=== PATIENT | male | born 1970 | race Caucasian/White ===

== ENCOUNTER → 2017-12-10 10:10 | Outpatient (CLI) | payer BC, SELFPAY ==
[2017-12-10 11:37] LABS: Alanine Aminotransferase 37 U/L (12-78); Albumin Level 4.4 gm/dL (3.4-5.0); Albumin/Globulin Ratio 1.4 (1.1-1.8); Alkaline Phosphatase 60 U/L (46-116); Anion Gap 12.3 mEq/L (5-15); Aspartate Amino Transferase 31 U/L (15-37); Bilirubin,Total 0.6 mg/dL (0.2-1.0); Blood Urea Nitrogen 19 mg/dL (7-18); Calcium 8.8 mg/dL (8.5-10.1); Carbon Dioxide 28 mmol/L (21.0-32.0); Chloride 101 mmol/L (98-107); Chol/HDL Ratio 3.1 (1-3.5); Cholesterol 174 mg/dL (140-200); Creatinine,Serum 0.96 mg/dL (0.70-1.30); Estimated Glomerular Filt Rate 83 ml/min (>60); GFR (African American) 101 ML/MIN (>60); Globulin 3.1 gm/dl (1.3-3.2); Glucose 122 mg/dL (74-106); HDL Cholesterol 56 mg/dL (27-67); LDL Cholesterol 87 mg/dL (0-130); Potassium 4.3 mmoL/L (3.5-5.1); Prostate Specific Ag Screen 0.2 ng/mL (0.0-4.0); Sodium 137 mmol/L (136-145); Total Protein,Serum 7.5 gm/dL (6.4-8.2); Triglycerides 153 mg/dL (30-200); VLDL Cholesterol 31 mg/dL (0-40)
== END ==
PROVIDERS: PCP Family Medicine; Visit Provider Family Medicine
DX: I10 Essential (primary) hypertension (principal); E78.5 Hyperlipidemia, unspecified; N40.0 Benign prostatic hyperplasia without lower urinary tract symptoms
CPT/HCPCS: 36415; 80053; 80061; G0103

== ENCOUNTER → 2018-07-19 10:35 | Outpatient (CLI) | payer BC, SELFPAY ==
--- NOTE | 2018-07-19 10:41 | XR_ITS ---
EXAM: XR cervical spine 5V HISTORY: ITS.REASON: NECK PAIN ORDERING PHYSICIAN: Ban Love MD PATIENT AGE: 48 years COMPARISON: None FINDINGS: There is slight reversal of the cervical lordosis. This may be due to patient positioning or muscle spasm. Degenerative disc disease is present at C5-C6 and C6-C7 . The foramina are widely patent area is minimal head tilt to the right. Carotid artery calcifications are present. IMPRESSION: Reversal of cervical lordosis with mild head tilt which may be due to patient positioning or muscle spasm. Degenerative disc disease C5-C6 and C6-C7
== END ==
PROVIDERS: PCP Family Medicine; Visit Provider Family Medicine
DX: M54.2 Cervicalgia (principal)
CPT/HCPCS: 72050

== ENCOUNTER → 2018-07-28 15:07 | Outpatient (CLI) | payer BC, SELFPAY ==
--- NOTE | 2018-07-28 15:13 | CI_ITS ---
Cerebrovascular Exam IMPRESSIONS 1. The bilateral vertebral arteries are patent with normal antegrade flow. 2. Study suggests less than 20% stenosis involving the right internal carotid artery and the left internal carotid artery. Carotid duplex study. Complete study and Doppler flow study including spectral analysis, color and mendoza scale imaging. Height: Height: 182.9cm. Height: 72in. Weight: Weight: 117.9kg. Weight: 259.5lb. Body mass index: BMI: 35.3kg/m^2. Body surface area: BSA: 2.49m^2. Location: Vascular laboratory. Patient status: Outpatient. Tables: Arterial flow: + +--------+--------+ Location V sys V ed + +--------+--------+ Right CCA - proximal 159cm/s 18.7cm/s + +--------+--------+ Right CCA - distal 111cm/s 14.8cm/s + +--------+--------+ Right ECA 54cm/s -------- + +--------+--------+ Right ICA - proximal 53cm/s 14.7cm/s + +--------+--------+ Right ICA - mid 66.3cm/s 25.5cm/s + +--------+--------+ Right ICA - distal 84.9cm/s 32.5cm/s + +--------+--------+ Right vertebral 36.4cm/s -------- + +--------+--------+ Left CCA - proximal 166cm/s 22.6cm/s + +--------+--------+ Left CCA - distal 99.2cm/s 17.7cm/s + +--------+--------+ Left ECA 84.9cm/s -------- + +--------+--------+ Left ICA - proximal 54.1cm/s 20.1cm/s + +--------+--------+ Left ICA - mid 62.2cm/s 25.1cm/s + +--------+--------+ Left ICA - distal 69.1cm/s 23.9cm/s + +--------+--------+ Left vertebral 47.1cm/s -------- + +--------+--------+ Velocity ratios: + + + + + + Right, V sys Right, V ed Left, V sys Left, V ed + + + + + + Max ICA/dist CCA 0.76 2.2 0.7 1.42 + + + + + + (Report amended ) Electronically signed by: Julian Zuñiga [id number]
== END ==
PROVIDERS: Family Provider Family Medicine; PCP Family Medicine; Visit Provider Family Medicine
DX: I65.23 Occlusion and stenosis of bilateral carotid arteries (principal)
CPT/HCPCS: 93880

== ENCOUNTER → 2019-05-15 11:44 | Outpatient (CLI) | payer BC, SELFPAY ==
[2019-05-15 12:53] LABS: Anion Gap 14.1 mEq/L (5-15); Blood Urea Nitrogen 20 mg/dL (7-18); Calcium 8.4 mg/dL (8.5-10.1); Carbon Dioxide 27 mmol/L (21.0-32.0); Chloride 103 mmol/L (98-107); Chol/HDL Ratio 3.4 (1-3.5); Cholesterol 150 mg/dL (140-200); Creatinine,Serum 1.17 mg/dL (0.70-1.30); Estimated Glomerular Filt Rate 66 ml/min (>60); GFR (African American) 80 ML/MIN (>60); Glucose 104 mg/dL (74-106); HDL Cholesterol 44 mg/dL (27-67); LDL Cholesterol 65 mg/dL (0-130); Potassium 4.1 mmoL/L (3.5-5.1); Sodium 140 mmol/L (136-145); Thyroid Stimulating Hormone 1.39 uIU/ml (0.358-3.740); Triglycerides 204 mg/dL (30-200); VLDL Cholesterol 41 mg/dL (0-40)
[2019-05-15 13:21] LABS: Creatinine,Urine Random 153 mg/dL (20-320)
[2019-05-15 13:41] LABS: Prostate Specific Ag Screen 0.1 ng/mL (0.0-4.0)
[2019-05-15 14:50] LABS: Hemoglobin A1C 6.3 % (0.0-7.0)
[2019-05-17 07:47] LABS: Microalbumin, Urine 17.7 ug/mL (Not Estab.)
== END ==
PROVIDERS: Visit Provider Family Medicine
DX: I10 Essential (primary) hypertension (principal); E78.2 Mixed hyperlipidemia; R73.9 Hyperglycemia, unspecified; Z12.5 Encounter for screening for malignant neoplasm of prostate
CPT/HCPCS: 36415; 80048; 80061; 82043; 82570; 83036; 84443; G0103

== ENCOUNTER → 2020-04-16 16:24 | Outpatient (CLI) | payer BC, SELFPAY ==
--- NOTE | 2020-04-16 16:32 | XR_ITS ---
PROCEDURE: XR SHOULDER RT MIN 2V CLINICAL INDICATION: RIGHT SIDED THORACIC BACK PAIN COMPARISON: No exams were available for comparison FINDINGS: There is mild subacromial stenosis. There is minimal spurring along the inferior aspect of the a chromium with subacromial stenosis. The glenohumeral joint has an unremarkable appearance. There is some minimal hypertrophic change of the greater tubercle of the humerus. IMPRESSION: Spurring along the inferior surface of the a chromium with subacromial stenosis. This may result in impingement upon the supraspinatus tendon and may be better evaluated with MRI if clinically warranted. There is some minimal degenerative change of the humeral head Dictated by: Cesar Quezada MD 04/16/2020 16:50 Electronically signed by Cesar Quezada MD in [place] 04/16/2020 16:50
== END ==
PROVIDERS: PCP Family Medicine; Visit Provider Family Medicine
DX: M54.6 Pain in thoracic spine (principal); M54.2 Cervicalgia
CPT/HCPCS: 73030

== ENCOUNTER → 2020-04-24 08:38 | Outpatient (CLI) | payer BC, SELFPAY ==
--- NOTE | 2020-04-24 08:44 | MR_ITS ---
PROCEDURE: MR CERVICAL SPINE WO CON CLINICAL INDICATION: NECK PAIN Neck pain, right arm pain and numbness COMPARISON: No exams were available for comparison TECHNIQUE: Standard multiplanar multiecho sequences are performed without contrast. 3-D MIP and myelographic images are also rendered and reviewed FINDINGS: There is straightening of the cervical lordosis. This could be due to patient positioning or muscle spasm. The craniocervical junction has an unremarkable appearance. There is mild cervical curvature convex right. C2-C3: Mild left foraminal narrowing from facet hypertrophic change. C3-C4: Mild disc desiccation with minimal right foraminal narrowing from uncovertebral hypertrophy C4-C5: Mild bilateral foraminal narrowing from uncovertebral and facet hypertrophic change. There is a small broad-based right paracentral disc protrusion without impingement. C5-C6: Degenerative disc disease with a broad-based central right paracentral and foraminal disc protrusion most prominent in the foraminal region causing moderate right lateral recess and foraminal narrowing with abutting the cord on the anterior right aspect of the cord with central canal stenosis of 10 mm. C6-C7: Degenerative disc disease with bulging disc and an associated small broad-based right paracentral disc protrusion with resultant canal stenosis of 9 mm abutting the anterior aspect of the cord slightly on toward the right there is moderate bilateral lateral recess and foraminal narrowing C7-T1: Unremarkable. IMPRESSION: 1. Abnormal MRI of the cervical spine with multilevel cervical spondylosis with bulging disc and facet and uncovertebral hypertrophy with resultant lateral recess and foraminal narrowing. Please see above for detailed description at each level. 2. C4-C5: Mild bilateral foraminal narrowing from uncovertebral and facet hypertrophic change. There is a small broad-based right paracentral disc protrusion without impingement. 3. C5-C6: Degenerative disc disease with a broad-based central right paracentral and foraminal disc protrusion most prominent in the foraminal region causing moderate right lateral recess and foraminal narrowing with abutting the cord on the anterior right aspect of the cord with central canal stenosis of 10 mm. 4. C6-C7: Degenerative disc disease with bulging disc and an associated small broad-based right paracentral disc protrusion with resultant canal stenosis of 9 mm abutting the anterior aspect of the cord slightly on toward the right there is moderate bilateral lateral recess and foraminal narrowing Dictated by: Cesar Quezada MD 04/24/2020 14:41 Electronically signed by Cesar Quezada MD in [place] 04/24/2020 14:41
--- NOTE | 2020-04-24 08:44 | MR_ITS ---
PROCEDURE: MR SHOULDER RT WO CON CLINICAL INDICATION: RIGHT SHOULDER PAIN, SUBACROMIAL IMPINGEMENT Right shoulder pain with limited range of motion COMPARISON: XR SHOULDER RT MIN 2V from 04/16/2020 TECHNIQUE: Routine multiplanar multi echo sequences are performed without gadolinium enhancement. FINDINGS: There is complete tear of the supraspinatus tendon distally with mild retraction of the musculotendinous fibers. The infraspinatus tendon appears intact as does the subscapularis and teres minor tendons. There does appear to be a SLAP injury of the superior glenoid labrum with a tear from the 12 to 3 o'clock position. There is a small shoulder joint effusion. The bicipital tendon is in place. There is a small amount of fluid around the bicipital tendon sheath to the long head of the biceps and a small amount fluid in the subcoracoid region. Hypertrophic changes are present at the acromioclavicular joint. There is some mild cortical irregularity of the greater tubercle with a small amount fluid in the subdeltoid region. IMPRESSION: 1. Complete tear of the supraspinatus tendon with retraction of the musculotendinous fibers. 2. SLAP tear of the glenoid labrum 3. Fluid around the bicipital tendon sheath suggesting tendonitis with subcoracoid bursitis and mild osteoarthritic changes of the AC joint and degenerative changes of the humeral head Dictated by: Cesar Quezada MD 04/25/2020 09:34 Electronically signed by Cesar Quezada MD in [place] 04/25/2020 09:34
== END ==
PROVIDERS: PCP Family Medicine; Visit Provider Family Medicine
DX: M54.2 Cervicalgia (principal); M25.511 Pain in right shoulder; M75.41 Impingement syndrome of right shoulder
CPT/HCPCS: 72141; 73221; 76376

== ENCOUNTER 2020-05-29 16:30 | Outpatient (RCR) | payer BC, SELFPAY ==
--- NOTE | 2020-04-24 12:08 | HMH.PTOPEV ---
PT Outpatient Evaluation Rehab PT Outpatient Evaluation Start: 04/24/20 11:50 Freq: Status: Active Protocol: Document 04/24/20 11:50 MICHAEL (Rec: 04/24/20 12:08 MICHAEL [id number]) Electronically Signed By Rachid Solis, PT 04/24/20 11:50 Outpatient Therapy Subjective History Subjective History Patient is a 50 year old male presenting to outpatient PT with reports of R cervical/ shoulder pain with RUE radicular symptoms starting approx 1 month ago. No specific injury to report. Most recent imaging indicates possible C4/5 disc bulge. No radiology reports posted at this time. Relief noted with traction. Comorbidities include HTN, HLD and hx of umbilical hernia. Chief Complaint Pain,Paresthesia Symptom Type Numbness,Tingling,Shooting Symptoms Relieved By Heat,OTC Meds Symptoms Aggravated By Sitting,Standing,Bending/ Stooping,Physical Activity, Lifting Prior Functional Limitations None Current Functional Limitations Reaching,Lifting,Housework, Sleeping,Standing,Recreation Activity Symptom Description Constant but Variable Level of pain today (0-10) 5 Pain scale - at its best (0-10) 2 Pain scale - at its worst (0-10) 8 Cervical Eval Palpation Cervical Muscles R Upper Trapezius Cervical/Thoracic Palpation Findings Tenderness Posture Head/C-Spine Posture Sitting Position C-Spine Flattened Head/C-Spine Posture Standing Position C-Spine Flattened Flexibility Deficits Upper Trapezius Muscle Length (R) Moderate Tightness,(L) Moderate Tightness Levaetor Scapulae Muscle Length (R) Moderate Tightness,(L) Moderate Tightness Pectoralis Minor Muscle Length (R) Moderate Tightness,(L) Moderate Tightness Passive Joint Mobility Cervical PIVM WNL: R OA L OA R AA L AA R C2/3 L C2/3 R C3/4 L C3/4 R C4/5 L C4/5 R C5/6
== END 2020-05-29 16:35 | disposition home or self-care (01) ==
LOC: PT 16:30
PROVIDERS: PCP Family Medicine; Visit Provider Family Medicine
DX: M54.6 Pain in thoracic spine (principal)
CPT/HCPCS: 97010; 97012; 97014; 97110; 97163; G0283

== ENCOUNTER → 2020-06-03 16:21 | Outpatient (CLI) | payer BC, SELFPAY ==
--- NOTE | 2020-06-03 | XR_ITS ---
PROCEDURE: XR KNEE LT 3V CLINICAL INDICATION: COMPARISON: No exams were available for comparison FINDINGS: No fracture or dislocation. No lytic or blastic change. There is normal mineralization. There are mild tricompartmental osteoarthritic changes with suspected small suprapatellar effusion Other findings:None. IMPRESSION: Mild osteoarthritis with small suprapatellar effusion Dictated by: Cesar Quezada MD 06/03/2020 17:19 Electronically signed by Cesar Quezada MD in [place] 06/03/2020 17:19
== END ==
PROVIDERS: PCP Family Medicine; Visit Provider Family Medicine
DX: M17.12 Unilateral primary osteoarthritis, left knee (principal)
CPT/HCPCS: 73562

== ENCOUNTER → 2020-07-14 15:21 | Outpatient (CLI) | payer BC, SELFPAY ==
[2020-07-14 15:49] LABS: Basophils # 0.1 K/mm3 (0-0.2); Basophils % 0.9 % (0.1-2.0); Eosinophils # 0.6 K/mm3 (0.0-0.4); Eosinophils % 8.2 % (0.1-12.0); Hematocrit 40.5 % (42.0-52.0); Hemoglobin 14.1 g/dL (14.1-18.0); Lymphocytes # 2.1 K/mm3 (0.7-4.5); Lymphocytes % 28.5 % (10-50); Mean Corpuscular HGB Conc 34.9 g/dL (31.8-35.4); Mean Corpuscular Hemoglobin 30.4 pg (27.0-31.2); Monocytes # 0.4 K/mm3 (0.1-1.0); Monocytes % 5.8 % (1.7-9.3); Neutrophils # 4.3 K/mm3 (1.8-7.8); Neutrophils % 56.6 % (37.0-80.0); Platelet Count 218 K/mm3 (142-424); Red Blood Count 4.65 M/mm3 (4.60-6.20); Red Cell Distribution Width 12.4 % (11.5-17.5); White Blood Count 7.5 K/mm3 (4.8-10.8)
[2020-07-14 16:31] LABS: Chloride 97 mmol/L (98-107); Potassium 4.2 mmoL/L (3.5-5.1); Sodium 137 mmol/L (136-145)
[2020-07-14 16:34] LABS: Anion Gap 14.2 mEq/L (5-15); Blood Urea Nitrogen 21 mg/dl (9-20); Carbon Dioxide 30 mmol/L (22.0-30.0); Estimated Glomerular Filt Rate 70 ml/min (>60); GFR (African American) 85 ML/MIN (>60)
[2020-07-14 16:35] LABS: Calcium 9.7 mg/dl (8.4-10.2); Glucose 107 mg/dl (74-100)
[2020-07-14 19:29] LABS: Coronavirus 19 IgG Antibody Negative (Negative); Coronavirus 19 IgM Antibody Negative (Negative)
== END ==
PROVIDERS: Visit Provider Surgery
DX: K46.9 Unspecified abdominal hernia without obstruction or gangrene (principal)
CPT/HCPCS: 36415; 80048; 85025; 86328

== ENCOUNTER 2020-07-16 06:07 | Day surgery (SDC) | payer BC, SELFPAY ==
[2020-07-14 13:34] VITALS: BMI 35.9
[2020-07-16] VITALS (12 sets, daily range): BP systolic 126–150; BP diastolic 63–93; PULSE 65–88; RESP 12–20; TEMP 36.3–43; O2SAT 90–96
[2020-07-16 07:08] LABS: POC Glucose,Bedside 117 (70-110)
--- NOTE | 2020-07-16 09:37 | HMH.OPNOTE ---
Date of procedure: 07/16/20 Pre-op Diagnosis:: Umbilical hernia Post-op Diagnosis:: Chronically incarcerated umbilical hernia Procedure performed:: Laparoscopically directed repair of chronically incarcerated umbilical hernia with placement of large (8.0 cm) Bard ventral Juan mesh Surgeon:: Franklyn Joseph MD [employer] DEPARTMENT CHAIR:: Param Joyce Anesthesia: GETA Estimated blood loss (mL): 15 Operative findings:: Patient had chronically incarcerated omentum within a hernia defect measuring approximately 2 cm. Operative note:: Patient was taken to the operating room. He was given preoperative intravenous antibiotics. In the operating room he was placed in a supine position. General anesthesia was induced via endotracheal tube. Abdomen was prepped and draped in the standard surgical fashion. 5 mm optical trocar was inserted in the left subcostal region under visualization. Peritoneal cavity was entered and CO2 pneumoperitoneum was achieved. Laparoscopic surveillance was then carried out identifying hernia defect at the umbilicus with omentum. Additional 5 mm trocar was inserted in the left lower quadrant. Gentle traction was placed on the chronically incarcerated omentum. Slowly this was carefully reduced and delivered. Remainder of adhesions were taken down using blunt dissection. Overall size of the hernia defect measured up to approximately 2 cm. Plan was made for placement laparoscopically of large sized ventral Juan mesh to allow adequate fascial overlap. Subumbilical skin was made approximately 10 mm in length. 11 mm trocar was inserted at the umbilicus. Through the trocar port site large sized Bard ventral Juan mesh was inserted. Laparoscopically it was positioned with generous fascial overlap as the mesh was unfurled. The Prolene tails of the mesh were secured superiorly and inferiorly to the fascia with 2-0 Prolene sutures. Mesh tails were then cut flush with the fascia. Attempt was made to close the fascia over the mesh with 0 Ethibond suture. Local anesthetic was infiltrated into all incisions. Skin incisions were closed with 4-0 Monocryl in a subcuticular fashion. Steri-Strips and dressings were applied. Condition: stable Disposition: PACU Complications:: None immediately apparent
--- NOTE | 2020-07-16 09:37 | HMH.ANESCL ---
[facility] Anesthesia Checklist - Structural Data Admitted From: Home Planned Operative Procedure/s: umbilibal hernia rpr Consent for Planned Operative Procedure(s) Verified: Yes - Additional verifications Anesthesia Reactions: No Hx Blood Transfusions: No Blood Transfusion Reaction: No - Airway Assessment C-Spine Mobility Assessed: Yes TMJ Mobility Assessed: Yes Dentition: Good Dentition - Neurological Assessment Level of Consciousness: Awake, Alert, Appropriate - Anesthesia Plan Anesthesia Risk discussed: Yes Anesthesia Plan: Verified ASA Class: II Anesthesia Type: General [facility] History I have reviewed the patient's past medical history: Yes Medical History: Reports:: Hypertension Denies:: Cancer, Diabetes Mellitus Type 1, Diabetes Mellitus Type 2, Internal Pacemaker, MRSA, Seizures *Have you ever received a pneumonia vaccine?: No *Have you received a flu vaccine this season?: No Other Medical History: Denies: Blood Transfusion Reaction Anesthesia experience/problems:: none Other Surgeries: Yes: No Previous Surgery. No: Pacemaker Amputation: No Fractures: No - *Social History Last grade of school completed: High school graduate Smoking Status: Never smoker Alcohol Intake: current Alcohol Intake Frequency:: 3 or more drinks per day Substance Use Type: denies use *Occupational Status:: employed Housing: house Household Members: family *Travel in the last 8 weeks: Inside the [place] Family Hx:: No significant family history
--- NOTE | 2020-07-16 09:38 | HMH.ANESI ---
[facility] Anesthesia Record Part I Intake, IV Amount: 1,500 Estimated blood loss (mL): 0 Urine output (mL): 0 Blood Pressure: 148/85 SaO2: 96 Pulse Rate: 74 Respiratory Rate: 12 Temperature: 98.3 F Patient is:: Awake, Stable Stable to PACU at:: 09:35
--- NOTE | 2020-07-17 09:27 | P.PN_ITS ---
[facility] Anesthesia Record Part II Discharge Time: 10:05 Destination: [facility] PACU nurse assessment reviewed?: Yes Patient Condition:: Good Anesthesia Complications:: None Swallowing reflex intact?: Yes Cyanosis?: No Blood Pressure: 129/77 Pulse Rate: 69 Temperature: 97.4 F Mental Status: Alert & Oriented Pain level:: 4 Nausea and/or vomitting:: None Intake, IV Amount: 1,500
[2020-07-17 09:28] VITALS: BP 129/77; PULSE 69; TEMP 36.3
== END 2020-07-16 10:55 | disposition home or self-care (01) ==
LOC: OR 06:11
PROVIDERS: PCP Family Medicine; Visit Provider Surgery
PROC: 0WQF4ZZ Repair Abdominal Wall, Percutaneous Endoscopic Approach (ICD-10-PCS; CPT 49653; principal; 2020-07-16 08:15)
DX: K42.9 Umbilical hernia without obstruction or gangrene (principal); I10 Essential (primary) hypertension; Z88.0 Allergy status to penicillin; Z79.899 Other long term (current) drug therapy; F10.20 Alcohol dependence, uncomplicated
CPT/HCPCS: 49653; 82962; 96374; C1781; J0330; J2405; J2710

== ENCOUNTER → 2021-01-08 14:45 | Outpatient (CLI) | payer BC, SELFPAY ==
--- NOTE | 2021-01-08 14:50 | MR_ITS ---
PROCEDURE: MR KNEE LT WO CON CLINICAL INDICATION: ARTHROPATHY OF KNEE Left knee pain, medial side pain with intermittent popping COMPARISON: CR XR KNEE LT 3V from 06/03/2020 TECHNIQUE: Routine multiplanar multi echo sequences are performed without gadolinium enhancement. FINDINGS: The cruciate ligaments are intact. The collateral ligaments, patellar tendon, and quadriceps tendon are intact. There are mild osteoarthritic changes involving all 3 compartments. There is a complex tear involving the posterior horn of the medial meniscus. There is both longitudinal and horizontal component. The lateral meniscus has an unremarkable appearance. There is a small to medium size knee joint effusion as well as a small Brink's cyst. Small area of edema is present involving the subcortical portion of the medial femoral condyle and medial tibial plateau hypointense on T1 and hyperintense on T2 and may be due to reactive edema from the osteoarthritic change or developing areas of avascular necrosis. The patellar cartilage is fairly well preserved. IMPRESSION: 1. Complex tear involves the posterior horn of the medial meniscus. 2. Osteoarthritic change with knee joint effusion and reactive edema versus developing avascular necrosis of the medial femoral condyle and medial tibial plateau. Dictated by: Cesar Quezada MD 01/09/2021 10:58 Cesar Quezada MD in [place] 01/09/2021 10:58
== END ==
PROVIDERS: PCP Family Medicine; Visit Provider Family Medicine
DX: M17.12 Unilateral primary osteoarthritis, left knee (principal)
CPT/HCPCS: 73721

== ENCOUNTER → 2021-01-19 15:50 | Outpatient (CLI) | payer BC, SELFPAY | PROVIDERS: PCP Family Medicine; Visit Provider Family Medicine | DX: I10 Essential (primary) hypertension (principal); R06.83 Snoring; R53.83 Other fatigue; G47.33 Obstructive sleep apnea (adult) (pediatric) | CPT/HCPCS: G0399 ==

== ENCOUNTER 2021-01-27 16:00 | Outpatient (RCR) | payer BC, SELFPAY ==
--- NOTE | 2020-12-09 16:52 | HMH.PTOPEV ---
PT Outpatient Evaluation Rehab PT Outpatient Evaluation Start: 12/09/20 16:09 Freq: Status: Active Protocol: Document 12/09/20 16:43 MICHAEL (Rec: 12/09/20 16:52 MICHAEL [id number]) Electronically Signed By Rachid Solis, PT 12/09/20 16:43 Outpatient Therapy Subjective History Subjective History Patient is a 50 year old male presenting to outpatient PT with reports of L knee pain starting approximately 6 months ago of insidious onset. Most recent imaging indicates mild OA. Pain specific to medial compartment . Comorbidities include hx of HTN, HL, prediabetic and recent umbilical hernia. Chief Complaint Pain,Stiff,Clicks,Swelling Symptom Type Ache,Sharp,Dull Symptoms Relieved By Rest/Positioning,Heat,Activity Symptoms Aggravated By Sitting,Bending/Stooping Prior Functional Limitations None Current Functional Limitations Housework,Sitting,Squatting, Recreation Activity,Stairs, Bending/Stooping Symptom Description Intermittent Level of pain today (0-10) 0 Pain scale - at its best (0-10) 0 Pain scale - at its worst (0-10) 9 Hip/Knee Eval Gait Observation General Gait Pattern Observation Antalgic Gait,Decrease Weight Bear (L) Assistive Device Assistive Devices None / NA Palpation Tenderness left Knee Palpation Finding Tenderness Knee Palpation Overall Comment medial joint line 2/4 MMT Hip Flexion Strength Grade 4 Good Hip Abduction Strength Grade 5 Normal Hip Adduction Strength Grade 4 Good Hip Extension Strength Grade 4- Good- Hip External Rotation Strength Grade 4 Good Hip Internal Rotation Strength Grade 4 Good Knee Extension Strength Grade 4 Good Knee Flexion Strength Grade 4- Good- ROM Hip ROM Reason Not Measured Within Functional Limits Knee Extension Active Range of Motion ( -4 degrees) Knee Extension Passive Range of Motion ( 0 degrees) Knee Flexion Active Range of Motion ( 122 degrees) Knee Flexion Passive Range of Motion ( 125 degrees) Special Tests Hip Glen Test Positive Left Knee Anterior Drawer Test Negative Left Knee Medial-Lateral Grind Test Negative Left Knee Anterior Arnulfo Test Negative Left Knee Pivot Shift Test Negative Left Knee Valgus Stress Test Negative Left Knee Varus Stress Test
--- NOTE | 2021-01-20 16:22 | HMH.RHREAS ---
Rehab Reassessment Rehab OP Re-assessment Start: 01/20/21 16:02 Freq: Status: Active Protocol: Document 01/20/21 16:02 MICHAEL (Rec: 01/20/21 16:21 MICHAEL [id number]) Electronically Signed By Rachid Solis, PT 01/20/21 16:02 Rehab Re-assessment Subjective Subjective Patient reports 25% improvement since start of care. Objective Objective Notes AROM: WNL MMT: all MMT 5/5 R hip, quad and HS Pain: 5/10 today; 7/10 at worst Neuro: WNL Special test: + Samy R Assessment Progress Assessment Slower Than Expected Assessment Notes Patient has been seen in outpatient PT for 10 visits to date with minimal improvement noted. Patient has been set up with a lateral stabilizer knee brace that has provided some relief with work related activities. Rx has consisted of progression of LLE hip/ thigh strengthening. Patient had an MRI that indicated complex tear of L medial posterior horn meniscus tear. Pt to consult with orthopedic surgeon for progression of care. Patient continues to have pain/difficulty with all standing and ambulatory activities. Patient goals met STG 2 Goals Not Met All others Revised Goals NA Plan Plan Continue with current POC. Frequency of Therapy 2x/week Duration of therapy 4 weeks Time and Billing Re-Eval Time 15 Re-Eval Billing Units 1 PHYSICIAN CERTIFICATION: I certify the specified therapy services for Maynor Santizo are required, authorized, and reviewed every 30 days.
== END 2021-01-27 16:05 | disposition home or self-care (01) ==
LOC: PT 16:00
PROVIDERS: PCP Family Medicine; Visit Provider Family Medicine
DX: M17.12 Unilateral primary osteoarthritis, left knee (principal)
CPT/HCPCS: 97010; 97014; 97110; 97163; 97164; 97760; G0283

== ENCOUNTER 2021-04-24 16:00 | Outpatient (RCR) | payer BC, SELFPAY | END 2021-04-24 16:05 | disposition home or self-care (01) | LOC: PT 16:00 | PROVIDERS: PCP Family Medicine; Visit Provider Orthopaedic Surgery | DX: M25.562 Pain in left knee (principal); Z48.89 Encounter for other specified surgical aftercare | CPT/HCPCS: 97010; 97014; 97110; 97163; 97164; G0283 ==

== ENCOUNTER → 2021-04-30 14:47 | Outpatient (CLI) | payer BC, SELFPAY | PROVIDERS: PCP Family Medicine; Visit Provider Nurse Practitioner Family | DX: G47.33 Obstructive sleep apnea (adult) (pediatric) (principal) | CPT/HCPCS: 94762 ==

== ENCOUNTER → 2022-09-06 13:29 | Outpatient (CLI) | payer BC, SELFPAY ==
[2022-09-06 14:21] LABS: Basophils # 0.1 K/mm3 (0-0.2); Basophils % 1.1 % (0.1-2.0); Eosinophils # 0.3 K/mm3 (0.0-0.4); Eosinophils % 4.2 % (0.1-12.0); Hematocrit 41.3 % (42.0-52.0); Hemoglobin 13.5 g/dL (14.1-18.0); Lymphocytes # 1.7 K/mm3 (0.7-4.5); Lymphocytes % 24.1 % (10-50); Mean Corpuscular HGB Conc 32.8 g/dL (31.8-35.4); Mean Corpuscular Hemoglobin 29.6 pg (27.0-31.2); Mean Corpuscular Volume 90.3 fl (80-94); Mean Platelet Volume 8.5 fl (7.4-10.4); Monocytes # 0.5 K/mm3 (0.1-1.0); Neutrophils # 4.5 K/mm3 (1.8-7.8); Neutrophils % 63.6 % (37.0-80.0); Platelet Count 211 K/mm3 (142-424); Red Blood Count 4.58 M/mm3 (4.60-6.20); Red Cell Distribution Width 12.5 % (11.5-17.5); White Blood Count 7.1 K/mm3 (4.8-10.8)
[2022-09-06 14:24] LABS: Strep Scrn Group A (Rapid) Negative (Negative)
== END ==
PROVIDERS: PCP Family Medicine; Visit Provider Nurse Practitioner Family
DX: U07.1 COVID-19 (principal)
CPT/HCPCS: 36415; 85025; 87275; 87276; 87430; C9803; U0003; U0005

== ENCOUNTER → 2023-04-05 11:14 | Outpatient (CLI) | payer BC, SELFPAY ==
--- NOTE | 2023-04-05 11:22 | XR_ITS ---
FINAL REPORT CLINICAL HISTORY: LT SHOULDER PAIN COMPARISON: None FINDINGS: Two views of the left shoulder show no evidence of acute displaced fracture or dislocation of the visualized bony architecture. The joint spaces appear normal. IMPRESSION: Unremarkable exam. Reviewed, Interpreted and Dictated by Ban Gale MD Transcribed by Rocio Fields Authenticated and . [facility]
== END ==
PROVIDERS: PCP Family Medicine; Visit Provider Family Medicine
DX: M25.512 Pain in left shoulder (principal)
CPT/HCPCS: 73030

== ENCOUNTER → 2023-04-19 16:32 | Outpatient (CLI) | payer BC, SELFPAY ==
--- NOTE | 2023-04-19 16:38 | MR_ITS ---
PROCEDURE INFORMATION: Exam: MR Left Upper Extremity Joint Without Contrast; Shoulder Exam date and time: 04/19/2023 4:39 PM Age: 53 years old Clinical indication: Pain; Shoulder; Left; Additional info: Acute pain in left shoulder. Limited rom. Fall x 3 weeks ago. TECHNIQUE: Imaging protocol: Magnetic resonance imaging of the left upper extremity without contrast. Exam focused on the shoulder. COMPARISON: CR XR SHOULDER LT MIN 2V 04/05/2023 11:23 AM FINDINGS: Limitations: Motion artifact. Fast sequences were utilized to decrease motion artifact but have inherently decreased anatomic detail. Bones/joints: A moderate effusion involves the glenohumeral joint. Joint fluid extends through the full thickness rotator cuff tear into the subacromial-subdeltoid bursa. The undersurface of the acromion has a normal curvature, consistent with a type II acromion. A moderate subacromial enthesophyte may contribute to rotator cuff impingement. There is mild primary osteoarthritis of the acromioclavicular joint. There is no acute fracture or dislocation. No aggressive bone lesions are present. The acromion is laterally downsloping, which can contribute to rotator cuff impingement. Glenoid labrum: Evaluation of the labrum is significantly limited on this study. Supraspinatus tendon: A full-thickness tear involves the majority of the supraspinatus tendon with a few of the far posterior fibers potentially remaining intact. The tendon is retracted approximately 2.3 cm. Infraspinatus tendon: A high-grade partial-thickness tear involves the articular surface of approximately the upper half of the infraspinatus tendon superimposed on severe tendinosis. Subscapularis tendon: Very low-grade intrasubstance tearing involves the subscapularis tendon. There is moderate tendinosis of the adjacent intact subscapularis tendon. Teres minor tendon: No tear or significant tendinosis involves the teres minor tendon. Tendon of biceps brachii: Severe tendinosis involves the intra-articular portion of the long head of the biceps tendon. Glenohumeral ligaments: Unremarkable as visualized. Soft tissues: There is a small fluid collection along the superomedial infraspinatus musculotendinous junction. IMPRESSION: 1. Full-thickness tear involving the majority of the supraspinatus tendon with approximately 2.3 cm retraction and moderate muscle atrophy. 2. High-grade partial-thickness of the upper half of the infraspinatus tendon superimposed on severe tendinosis. 3. Subscapularis tendon very low-grade intrasubstance tearing superimposed on moderate tendinosis. 4. Severe tendinosis of the long head of the biceps tendon. 5. Mild primary osteoarthritis of the acromioclavicular joint. 6. Laterally downsloping acromion and moderate subacromial enthesophyte, which can contribute to rotator cuff impingement.
== END ==
PROVIDERS: PCP Family Medicine; Visit Provider Family Medicine
DX: M25.512 Pain in left shoulder (principal); M25.312 Other instability, left shoulder
CPT/HCPCS: 73221

== ENCOUNTER → 2023-10-03 13:00 | Outpatient (CLI) | payer BC, SELFPAY ==
--- NOTE | 2023-10-03 13:05 | CA_ITS ---
APPROVED REPORT EXAM: Comprehensive 2D, Doppler, and color-flow Echocardiogram Objects Conservator: Raven Tamayo RVT Ht: 6 ft 0 in Wt: 290lbs BSA: 2.49 BP: 145/80 mmHg Indications: MURMUR 2D Dimensions LVOT 2.31 cm (M/F) 1.5-2.5 LA Volume 72.10 mL LA Volume Index 28.96 mL/m2 (M/F) 16-34 M-Mode Dimensions RVDd 2.77 cm (0.9-2.6) LA Diam 4.76 cm (1.9-4.0) LVDd 5.72 cm (3.5-5.7) Ao Diam 3.34 cm (2.0-3.7) LVDs 3.31 cm (3.5-5.7) IVSd 0.80 cm (0.6-1.1) PWd 0.85 cm (0.6-1.1) EF (Teich) 72.40% FS 42.10% EDV (Teich) 161.30 mL TAPSE 3.77 (<1.7) ESV (Teich) 44.50 mL LV Diastology E Decel Time 200.00 (160-240 msec) E/A Ratio 1.4 MED E' 10.20 (< 7 cm/sec) E'/MED E' Ratio 11.89 (>14) LAT E' 9.40 (<10 cm/sec) E/LAT E' Ratio 12.90 (>14) Aortic Valve LVOT Max 154.00 (70-110 cm/s) LVOT VTI 34.26 cm AoV Peak Kam. 183.00 (50-130 cm/s) AO Peak GR. 13.50 mmHg AO Mean GR. 6.80 (<5 mmHg) AO VTI 36.13 (18-25 cm) YOSELIN (VTI) 3.97 (2.5-4.5 cm2) Mitral Valve MV E Max Kam. 121.00 (40-130 cm/s) MV A Velocity 84.00 (40-130 cm/s) E/A Ratio 1.44 MV Decel. Time 200.00 (160-240 ms) MV PHT 59.00 ms Pulmonary Valve PV Peak Velocity 96.00 (50-150 cm/s) Tricuspid Valve TR P. Velocity 184.00 cm/s RAP Estimate 10.00 mmHg RVSP 23.60 mmHg Left Ventricle The left ventricle is normal size. The left ventricular systolic function is normal. The left ventricular ejection fraction is within the normal range. There is normal left ventricular wall thickness. There is normal LV segmental wall motion. The left ventricular diastolic function is normal. LVEF is 60%. Right Ventricle The right ventricle is mildly dilated. The right ventricular systolic function is normal. Atria The left atrium size is normal. The right atrium size is normal. There is no Doppler evidence of interatrial shunt. Aortic Valve The aortic valve opens well. There is no aortic valvular stenosis. Trace aortic regurgitation. Mitral Valve The mitral valve is normal in structure. No evidence of mitral valve stenosis. Mild mitral regurgitation. Tricuspid Valve The tricuspid valve leaflets are thin and pliable. Trace tricuspid regurgitation. RVSP is normal. Pulmonic Valve The pulmonary valve is normal in structure. Trace pulmonic regurgitation. Great Vessels The aortic root is normal in size. The ascending aorta is normal in size. IVC is normal in size and collapses >50% with inspiration. Pericardium There is no pericardial effusion. Other Information Study Quality: Fair Conclusion Normal biventricular systolic function. Mild MR. Electronically signed by : Gila Pickens MD 10/05/2023 11:43:26
--- NOTE | 2023-10-03 13:06 | CA_ITS ---
FINAL REPORT TECHNIQUE: Wells scale, color and spectral doppler images of the bilateral carotid arteries were obtained. CLINICAL HISTORY: ABDI FINDINGS: Peak systolic velocity in the right internal carotid artery is 116 cm/sec. The internal carotid to common carotid artery ratio is 1.3. There is no significant carotid artery stenosis. There is mild plaque formation. The right vertebral artery is normal in direction. Peak systolic velocity in the left internal carotid artery is 105 cm/sec. The internal carotid to common carotid artery ratio is 0.8. There is no significant carotid artery stenosis. There is minimal plaque formation. The left vertebral artery is normal in direction. IMPRESSION: Less than 50% bilateral carotid artery stenosis. Reviewed, Interpreted and Dictated by Harmony Nino MD Transcribed by Vanessa Carvalho Authenticated and [facility]
== END ==
PROVIDERS: PCP Family Medicine; Visit Provider Family Medicine
DX: R01.1 Cardiac murmur, unspecified (principal); I65.23 Occlusion and stenosis of bilateral carotid arteries
CPT/HCPCS: 93306; 93880

== ENCOUNTER 2023-12-30 15:08 | Outpatient (CLI) | payer BC, SELFPAY ==
--- NOTE | 2023-12-30 15:18 | XR_ITS ---
FINAL REPORT TECHNIQUE: 5 views CLINICAL HISTORY: LOW BACK PAIN R arm and R leg numbness and tingling FINDINGS: Five views of the lumbar spine were obtained. There is no fracture present. There is no malalignment. There are mild diffuse degenerative changes. IMPRESSION: Mild degenerative changes. Reviewed, Interpreted and Dictated by Ban Gale MD Transcribed by Georgia Campos Authenticated and . [facility]
== END 2023-12-30 23:59 ==
LOC: RAD 15:09
PROVIDERS: PCP Psychiatry & Neurology Sleep Medicine; Visit Provider Family Medicine
DX: M54.50 Low back pain, unspecified (principal)
CPT/HCPCS: 72110

== ENCOUNTER 2024-03-14 16:00 | Outpatient (RCR) | payer BC, SELFPAY ==
--- NOTE | 2024-01-30 16:47 | HMH.PTOPEV ---
PT Outpatient Evaluation Rehab PT Outpatient Evaluation Start: 01/30/24 14:01 Freq: Status: Active Protocol: Document 01/30/24 14:01 RADHA (Rec: 01/30/24 16:47 RADHA [id number]) E-signed By Stephanie Snyder, PT Outpatient Therapy Subjective History Subjective History Pt is a 53 y/o male who reports onset of right lateral leg numbness/tingling at the end of November. Pt reports paresthesia from his hip to his barron. Pt also reports onset of right arm numbness/ tingling directly prior to onset of LE symptoms with report of previous history of cervical radiculopathy in 2019 . Pt denies stroke symptoms. Pt had a lumbar spine xray on 12/30/23 with impression of Mild degenerative changes. Pt reports he had a lumbar spine MRI 01/11/24 at [facility] with findings of a bulging disc. Pt reports mild low back discomfort with heavy lifting and weed eating, denies true low back pain. Pt reports numbness/tingling of the RLE is constant but does increase in intensity at times such as with sitting and sleeping. Pt reports he was prescribed Gabapentin which he just started taking last week without noticeable changes in symptoms yet. Occupation: [employer] Medical History: Hypertension, Hyperlipidemia Core strength 4-/5 New diagnosis of cancer in past 12 No months? Chief Complaint Paresthesia Symptom Type Numbness,Tingling Symptoms Relieved By Nothing Symptoms Aggravated By Supine,Sitting Current Functional Limitations Sleeping,Sitting Symptom Description Constant but Variable Level of pain today (0-10) 5 Pain scale - at its best (0-10) 2 Pain scale - at its worst (0-10) 5 Lumbopelvic Eval Posture Lumbar Spine Posture Standing Position Decreased Lordosis Palapation tenderness bilateral lumbar spinal tenderness Yes: L5-S1 Lumbar/Sacral Palpation Findings Tenderness Accessory Movement L-spine Vertebrae Accessory Movements [employer] [place] that Elicit Symptoms L5 bilateral S1 bilateral Range of Motion Lumbar Spine Active Flexion Range of 90 Motion (degrees) Lumbar Spine Active Extension Range of 15 Motion (degrees) Left Lumbar Spine Lateral Flexion Active 25 Range of Motion (degrees) Right Lumbar Spine Lateral Flexion 25 Active Range of Motion (degrees) Manual Muscle Test Bilateral Knee Extension Strength Grade 5 Normal Knee Flexion Strength Grade 5 Normal Hip Flexion Strength Grade 5 Normal Hip Abduction Strength Grade 5 Normal Hip Adduction Strength Grade 5 Normal Hip Extension Strength Grade 5 Normal Ankle Dorsiflexion Strength Grade 5 Normal DTR Rt Patellar 2+ Lt Patellar 2+ Rt Gastroc/Soleus 2+ Lt Gastroc/Soleus 2+ Altered Sensation Bilateral Comment equal and intact to light touch sensation bilaterally Special Tests Sciatic Nerve Tension Test Positive Right Unilateral Straight Leg Raise (Lasegue) Positive Right Test Oswestry Index Section 1 Pain Intensity The pain comes and goes and is very mild Section 2 Personal Care (Washing,Dresing) change my way of washing or dressing in order to avoid pain Section 3 Lifting I can lift heavy weights without extra pain Section 4 Walking I have no pain when walking Section 5 Sitting I can sit in any chair for as long as I like Section 6 Standing I can stand as long as I want without pain Section 7 Sleeping Because of my pain, my normal night's sleep is less than 6 hours sleep Section 8 Social Life My social life is normal and gives me no extra pain Section 9 Traveling I get no pain when traveling Section 10 Changing Degreee of Pain My pain is neither getting better or worse Score and Risk Level Oswestry Sc 5 Oswestry Risk Level Mild Disability Outpatient Therapy Assessment Impairments Problems/Impairmments Palpation Tenderness,Impaired Range of Motion,Impaired Strength,Impaired Sitting, Subjective C/O Pain,Impaired Self Care/Self Management Prognosis Rehab Potential Good Clinical Impression Consistent with Diagnosis Yes Short Term Goals Number of Weeks 2 Improve Self Care/Self Management Yes Patient to be Ind w/ HEP Yes Jail Goals Number of Weeks 4 Increase Range of Motion Yes: Improve lumbar AROM ext to 20, LF to 30 Increase Strength Yes: Improve core strength to 4+/5 grossly to assist with function Decrease Subjective C/O Pain Yes: Improve intensity of paresthesia at worst to 0-1/10 Outpatient Therapy Plan of Care Treatment Plan May Include Therapeutic Exercise Including Home Yes Exercise Program Manual Therapy Techniques Yes Neuromuscular Re-education Yes Therapeutic Activities to Return to Yes Previous Functional/Work Level ADL/Self Care Education Yes Mechanical Traction Yes Dry Needling Yes Thermal Modalities Yes Electrical Stimulation Yes Ultrasound/Phonophoresis Yes Massage Yes Eval/Re-Eval Yes Frequency Times per week 2 Duration Number of Weeks 4 Addendums This patient is a candidate for social No or vocational rehab? Patient/Guardian verbally acknowledges Yes understanding of treatment program and consents to further treatment? Patient/Guardian verbally acknowledges Yes understanding of diagnosis, prognosis and goals for treatment? Eval Complexity PT Charges 92651 - Low Complexity Shoulder/Elbow Eval Shoulder Objective Measurements Elbow Objective Measurements PHYSICIAN CERTIFICATION: I certify the specified therapy services for Maynor Santizo are required, authorized, and reviewed every 30 days.
--- NOTE | 2024-02-29 17:40 | HMH.RHREAS ---
Rehab Reassessment Rehab OP Re-assessment Start: 01/30/24 14:01 Freq: Status: Active Protocol: Document 02/29/24 16:26 RADHA (Rec: 02/29/24 17:40 NELAMARLIN [id number]) E-signed By Stephanie Snyder, PT Oswestry Index Section 1 Pain Intensity The pain comes and goes and is very mild Section 2 Personal Care (Washing,Dresing) change my way of washing or dressing in order to avoid pain Section 3 Lifting I can lift heavy weights without extra pain Section 4 Walking I have no pain when walking Section 5 Sitting I can sit in my favorite chair for as long as I like Section 6 Standing I have some pain on standing, but it does not increase with time Section 7 Sleeping I get pain in bed, but it does not prevent me from sleeping well Section 8 Social Life My social life is normal and gives me no extra pain Section 9 Traveling I get some pain when traveling , but none of my usual forms of travel m Section 10 Changing Degreee of Pain My pain fluctuates, but overall is definitely getting better Score and Risk Level Oswestry Sc 5 Oswestry Risk Level Mild Disability Rehab Re-assessment Subjective Subjective Pt reports he feels 50% improved since starting PT. Pt reports continued intermittent paresthesia in the RLE from his R posterior hip to his ankle. Pt reports decreased intensity of paresthesia since starting PT. Pt reports he has only been performing his HEP when he gets time, not everyday. Objective Objective Notes Lumbar AROM: flex 90, ext 20, LF 30 Core strength: 4-/5 Assessment Progress Assessment Progressing as Expected Assessment Notes Pt has attended 4 PT sessions 1x/week along with a HEP to address RLE paresthesia. Pt demonstrated improved lumbar AROM this date and improved subjective report of intensity of paresthesia since the initial evaluation. Pt demonstrated no change in KELSIE score and voiced non- compliance with HEP. Overall, the pt would continue to benefit from skilled PT to further improve subjective report of paresthesia, core strength, and function to improve overall QOL. Pt educated on importance of compliance with HEP or attending PT 2x/week vs 1x/ week to assist with overall progress. Patient goals met ST/2 LT/3 Goals Not Met HEP compliance, core strength, paresthesia intensity Revised Goals n/a Plan Plan Continue initial POC Frequency of Therapy 1-2x/week Duration of therapy 2-4 more weeks Time and Billing Re-Eval Time 10 Re-Eval Billing Units 1 PHYSICIAN CERTIFICATION: I certify the specified therapy services for Maynor Santizo are required, authorized, and reviewed every 30 days.
== END 2024-03-14 17:10 | disposition home or self-care (01) ==
LOC: PT 16:00
PROVIDERS: Visit Provider Family Medicine
DX: M47.816 Spondylosis without myelopathy or radiculopathy, lumbar region (principal); M51.36 Other intervertebral disc degeneration, lumbar region; M54.41 Lumbago with sciatica, right side
CPT/HCPCS: 97012; 97110; 97140; 97163; 97164

== ENCOUNTER 2024-09-26 14:15 | Outpatient (CLI) | payer BC, SELFPAY ==
--- NOTE | 2024-09-26 | XR_ITS ---
PROCEDURE INFORMATION: Exam: XR Right Knee Exam date and time: 09/26/2024 2:24 PM Age: 54 years old Clinical indication: Pain; Knee; Right; Additional info: Acute pain, no injury TECHNIQUE: Imaging protocol: Radiologic exam of the right knee. Views: 3 views. COMPARISON: No relevant prior studies available. FINDINGS: Bones/joints: No visible fracture or dislocation. Amorphous calcifications in the region of the popliteal fossa which may represent calcific tendinitis. Soft tissues: Normal. IMPRESSION: 1. No visible fracture or dislocation. 2. Amorphous calcifications in the region of the popliteal fossa which may represent calcific tendinitis.
--- OUTSIDE RECORDS SUMMARY | 2024-09-26 14:18 | XMS_ITS ---
Author Organization [facility] Address [address] [facility] [address] [place] [id number] Care Team Providers Care [employer] Name Role Phone Nolberto Love Primary Care Provider Melo Dominguez Unavailable [phone] ALLERGIES Allergen (clinical drug ingredient) Drug/Non Drug Allergy documented on EMR Reaction Allergy Type Onset Date Status Penicillin Unknown Drug Allergy Active REASON FOR VISIT right knee pain and popping MEDICATIONS Medication SIG (Take, Route, Frequency, Duration) Notes Start Date End Date Status Sildenafil Citrate 50 MG 1 tablet as needed Orally 07/14/2023 Active Valsartan 320 MG TAKE 1 TABLET BY MARGARET TH EVERY DAY for 90 Active metFORMIN HCl 500 MG TAKE 1 TABLET BY MO UTH EVERY DAY FOR 90 DAYS for 90 Active Fenofibrate 145 MG TAKE 1 TABLET BY MARGARET TH EVERY DAY for 90 Active Furosemide 40 MG 1 tablet Orally Once a day for 30 day(s) 08/06/2024 Active Meloxicam 15 MG 1 tablet Orally Once a day 09/26/2024 Active Sertraline HCl 50 MG 2 tablet Orally onc e daily for 90 days Active Triamterene-HCTZ 37.5-25 MG TAKE 1 TABLE T BY MOUTH EVERY DAY FOR 90 DAYS for 90 Active Atorvastatin Calcium 10 MG 1 tab(s) oral ly once a day for 90 days Active Metoprolol Succinate ER 100 MG TAKE 1 TABLET BY MOUTH EVERY DAY FOR 90 DAYS for 90 days Active CareTouch CPAP & BIPAP Hose 1 DIRECTED 02/03/20 21 Active amLODIPine Besylate 2.5 MG TAKE 1 TABLET BY MOUTH EVERY DAY for 90 Active VITAL SIGNS Weight 297.8 lbs 09/26/2024 Blood pressure systolic 150 mm Hg 09/26/20 24 Blood pressure diastolic 80 mm Hg 024 Heart Rate 79 /min 09/26/2024 Height 72 in 09/26/2024 BMI 40.38 kg/m2 09/26/2024 Encounters Encounter Location Date Provider Diagnosis [facility] [address] [facility] [address] [facility] [address] [place] [id number] 09/26/2024 Meloloni KillianBlunt Acute pain of right knee M25.561 and Positive Samy test of right knee, initial encounter S83.206A ASSESSMENTS Encounter Date Diagnosis Assessment Notes Treatment Notes Treatment Clinical Notes 09/26/2024 Acute pain of right knee (ICD-10 - M25.561) 09/26/2024 Positive Samy test of right knee, initial encounter (ICD-10 - S83.206A) PLAN OF TREATMENT Medication Medication Name Sig Start Date Stop Date Notes Meloxicam 15 MG 1 tablet Orally Once a day 09/26/2024 Pending Test Test Name Order Date X ray : Knee, right 09/26/2024 Next Appt Details Follow Up: via phone to repo rt test results, Reason: Provider Name:Melo Duque ry, 09/26/2024 01:30:00 PM, [address] [facility] [address] [facility], [address], [place], [phone], Provider Name:Nolberto Aguayo er, 11/26/2024 03:45:00 PM, [address] [facility] [address] [facility], [facility] [address], [place], [phone], History and Physical Notes * HPI (History of Present Illness) Category Sub-Category Detail Notes Knee/Long knee pain Pt complains of rt knee pain for about a week. Pt states he was stepping up stairs yesterday and heard a loud pop , pt had to put brace on to be able to finish working for the day. Pt states he is unable to bend knee all the way and when driving, pain increases when pushing on brake and gas. Pt has tried to ice knee and take Aleve but has had no relief
--- OUTSIDE RECORDS SUMMARY | 2024-09-26 14:18 | XMS_ITS ---
Author Organization [facility] Address [address] [facility] [address] [place] [id number] Care Team Providers Care Manager Medicaid Name Role Phone Nolberto Love Primary Care Provider REASON FOR VISIT Test results* Encounters Encounter Location Date Provider Diagnosis [facility] [address] [place] [phone] 08/27/2024 Nolberto Love PLAN OF TREATMENT Next Appt Details Provider Name:Melo Duque ry, 09/26/2024 01:30:00 PM, [address], [address], [place], [phone], Provider Name:Nolberto Aguayo er, 11/26/2024 03:45:00 PM, [address], [address], [place], [place], [phone],
--- OUTSIDE RECORDS SUMMARY | 2024-09-26 14:18 | XMS_ITS | Patient Health Record ---
Author Organization [facility] Address [address] [place] [id number] Care Team Providers Care Pumper Hand Name Role Phone Nolberto Love Primary Care Provider Melo Dominguez Unavailable [phone] ALLERGIES Allergen (clinical drug ingredient) Drug/Non Drug Allergy documented on EMR Reaction Allergy Type Onset Date Status Penicillin Unknown Drug Allergy Active RESULTS Component Value Reference Range Notes X ray : Spine, lumbosacral Reviewed date:01/03/2024 08:31:51 AM Interpretation:mild degenerative changes Performing Lab: Notes/Report: mild degenerative changes MRI : Spine, Lumbosacral, wi thout contrast Reviewed date:01/13/2024 08:13:22 AM Interpretation:Multilevel degenerative disc disease and spondylosis Performing Lab: Notes/Report: Multilevel degenerative disc disease and spondylosis P-Comprehensive Metabolic Pa raghav (CMP) Reviewed date:08/27/2024 10:39:06 AM Interpretation:cl 95, gluc 117 Performing Lab: Notes/Report: Test performed by [facility] , [address], [place] [address] Jonah Drew MD, Mill Labor Supervisor CLIA: [id number] Sodium 135 135-145 mmol/L Potassium 4.5 3.5-5.3 mmol/L Chloride 95 97-108 mmol/L CO2 29 22-32 mmol/L Glucose 117 65-99 mg/dL BUN 17 6-20 mg/dL Creatinine 1.05 0.70-1.30 mg/dL Calcium 9.6 8.6-10.4 mg/dL eGFR by Creatinine 83 >59 mL/min/1.73m2 Protein 7.3 6.0-8.3 g/dL Albumin 4.7 3.5-5.3 g/dL Alkaline Phosphatase 48 40-129 IU/L ALT (SGPT) 30 <5-55 IU/L AST (SGOT) 37 <5-46 IU/L Bilirubin, Total 0.5 <0.2-1.2 mg/dL A/G Ratio 1.8 1.1-2.5 P-Microalbumin/Creatinine, R andom Urine Sample Reviewed date:06/07/2024 03:59:59 PM Interpretation:Normal Performing Lab: Notes/Report: Test performed by [facility] [address] [place] [address] , [address], [place] [address] Jonah Drew MD, Mill Labor Supervisor CLIA: [id number] Albumin/Creatinine Ratio, Urine 10 0-30 ug/m g Microalbumin, Urine, Random 1.2 Creatinine, Urine 121.0 Glycohemoglobin A1c (in hous e) Reviewed date:08/07/2024 08:53:11 AM Interpretation: Performing Lab: Notes/Report: glycohemoglobin 6.1% 5 - 6.5 % P-Comprehensive Metabolic Pa raghav (CMP) Reviewed date:04/19/2024 10:03:29 AM Interpretation:Na 134, chlor 96 Performing Lab: Notes/Report: Test performed by [facility] [address] [place] [address] , [address], [place] [address] Jonah Drew MD, Mill Labor Supervisor CLIA: [id number] Sodium 134 135-145 mEq/L Potassium 3.9 3.5-5.3 mEq/L Chloride 96 97-108 mEq/L CO2 27 22-32 mEq/L Glucose 87 65-99 mg/dL BUN 17 6-20 mg/dL Creatinine 1.08 0.70-1.30 mg/dL Calcium 9.5 8.6-10.4 mg/dL eGFR by Creatinine 80 >59 mL/min/1.73m2 Protein 7.0 6.0-8.3 g/dL Albumin 4.7 3.5-5.3 g/dL Alkaline Phosphatase 43 40-129 IU/L ALT (SGPT) 24 <5-55 IU/L AST (SGOT) 31 <5-46 IU/L Bilirubin, Total 0.3 <0.2-1.2 mg/dL A/G Ratio 2.0 1.1-2.5 mg/dL Glycohemoglobin A1c (in hous e) Reviewed date:04/19/2024 10:03:29 AM Interpretation:6.3% Performing Lab: Notes/Report: 6.3% glycohemoglobin 6.3% 5 - 6.5 % REASON FOR REFERRAL Reason Please arrange at [facility] Diagnosis 1 Lumbago with sciatic a, right side (M54.41) Diagnosis 2 Bulging lumbar disc (M51.36) Diagnosis 3 Lumbar facet arthrop athy (M47.816) Referral Organization [facility] Referring Provider First Name Melo Referring Provider Last Name Alberto Referring Provider Speciality Family Pra ctice Referred Provider Physical Therapy, . Referred Provider Specialty Physical The rapist General [facility] 10:07:37 AM > [facility] Mar 4 @ 200pm Referral Priority Routine MEDICATIONS Medication SIG (Take, Route, Frequency, Duration) Notes Start Date End Date Status Sildenafil Citrate 50 MG 1 tablet as needed Orally 07/14/2023 Active Valsartan 320 MG TAKE 1 TABLET BY MARGARET TH EVERY DAY for 90 Active metFORMIN HCl 500 MG TAKE 1 TABLET BY MO UTH EVERY DAY FOR 90 DAYS for 90 Active Meloxicam 15 MG 1 tablet Orally Once a day 09/26/2024 Active Fenofibrate 145 MG TAKE 1 TABLET BY MARGARET TH EVERY DAY for 90 Active CareTouch CPAP & BIPAP Hose 1 DIRECTED 02/03/20 21 Active amLODIPine Besylate 2.5 MG TAKE 1 TABLET BY MOUTH EVERY DAY for 90 Active Sertraline HCl 50 MG 2 tablet [...] FOR 90 DAYS for 90 days Active Furosemide 40 MG 1 tablet Orally Once a day for 30 day(s) 08/06/2024 Active IMMUNIZATIONS Vaccine Route Administration Date Status Comme nts Tetanus Tdap-Adacel (over 7yrs) Unknown 08/14/2020 Admi nistered SOCIAL HISTORY Sex Assigned At : Social History Observation Description Sex Assigned At Unknown PROBLEMS Problem Type ICD Code Onset Dates Problem Status W/U Status Risk SNOMED Code Notes Problem Hyperglycemia (R73.9) Active confirmed 89367397 Problem Essential hypertension (I10) Active confirmed 99981239 Problem Lumbar facet arthropathy (M47.816) Active confirmed 686480847 Problem Obstructive sleep apnea (G47.33) Active confirmed 88364033 Problem Lumbago with sciatica, right side (M54.41) Active confirmed 778224226 Problem Mixed hyperlipidemia (E78.2) Active confirmed 359562854 Problem Other specific arthropathies, not elsewhere classified, right shoulder (M12.811) Active confirmed 795268062 Problem Other specific arthropathies, not elsewhere classified, left shoulder (M12.812) Active confirmed 184690633 Problem Unspecified rotator cuff tear or rupture of right shoulder, not specified as traumatic (M75.101) Active confirmed 61310377645134171 Problem Unspecified rotator cuff tear or rupture of left shoulder, not specified as traumatic (M75.102) Active confirmed 58597124944074524 Problem Myofascitis (M60.9) Active confirmed 160225266 Problem Degenerative disc disease, cervical (M50.30) Active confirmed 90581486 Problem Hyperlipidemia, unspecified (E78.5) Active confirmed Hyperlipidemia (62476741) Problem Other chronic pain (G89.29) Active confirmed 30841490 Problem Sleep disturbance (G47.9) Active confirmed 82603822 Problem Erectile dysfunction, unspecified erectile dysfunction type (N52.9) Active confirmed 900960879 Problem Primary osteoarthritis of left knee (M17.12) Active confirmed 822526983489464 Problem Carotid stenosis, bilateral (I65.23) Active confirmed 381922934 Problem Umbilical hernia without obstruction and without gangrene (K42.9) Active confirmed 755281148 Problem Type 2 diabetes mellitus without complication, without long-term current use of insulin (E11.9) Active confirmed 832890009 Problem Benign prostatic hyperplasia without lower urinary tract symptoms (N40.0) Active confirmed 151332421 Problem Arthropathy of knee (M17.10) Active confirmed 923105742 Problem Calcification of both carotid arteries (I65.23) Active confirmed 506122764 Problem Derangement of posterior horn of medial meniscus of left knee (M23.322) Active confirmed 25477992714233348 Problem Tear of left rotator cuff, unspecified tear extent, unspecified whether traumatic (M75.102) Active confirmed 53352978860308340 Problem Depression, unspecified depression type (F32.A) Active confirmed 70191792 Problem Bulging lumbar disc (M51.36) Active confirmed 105197401 Problem Persistent depressive disorder (F34.1) Active confirmed 2047233327 VITAL SIGNS Heart Rate 79 /min 09/26/2024 Blood pressure diastolic 80 mm Hg 09/26/2024 Height 72 in 09/26/2024 Blood pressure systolic 150 mm Hg 09/26/2024 Weight 297.8 lbs 09/26/2024 BMI 40.38 kg/m2 09/26/2024 Encounters Encounter Location Date Provider Diagnosis [facility] [address] [facility] [address] [place], [place] [id number] 10/06/2023 Nolberto Love [facility] [address] [facility] [address] [place], [place] [id number] 10/17/2023 Nolberto Love Essential hypertensi on I10 ; Type 2 diabetes mellitus without complication, without long-term current use of insulin E11.9 and Carotid stenosis, bilateral I65.23 [facility] [address] [place], [place] [id number] 11/25/2023 Nolberto Love [facility] [address] [facility] [address] [place], [place] [id number] 12/30/2023 Melo [place] Bilateral low back pain, unspecified chronicity, unspecified whether sciatica present M54.50 [facility] [address] [facility] [address] [place], [place] [id number] 01/03/2024 Nolberto Love [facility] [address] [facility] [address] [place], [place] [id number] 01/06/2024 Melo [place] Lumbago with sciatic a, right side M54.41 and Other chronic pain G89.29 [facility] [address] [place], [place] [id number] 01/13/2024 Melo [place] Lumbago with sciatic a, right side M54.41 ; Bulging lumbar disc M51.36 and Lumbar facet arthropathy M47.816 [facility] [address] [place], [place] [id number] 04/16/2024 Nolberto Love Essential hypertensi on I10 ; Type 2 diabetes mellitus without complication, without long-term current use of insulin E11.9 ; Degenerative disc disease, cervical M50.30 ; Tear of left rotator cuff, unspecified tear extent, unspecified whether traumatic M75.102 and Persistent depressive disorder F34.1 [facility] [address] [place], [place] [id number] 04/19/2024 Nolberto Love [facility] [address] [place], [place] [id number] 05/28/2024 Nolberto Love Persistent depressiv e disorder F34.1 [facility] [address] [place], [place] [id number] 06/04/2024 J Jimmie Love Essential hypertensi on I10 and Type 2 diabetes mellitus without complication, without long-term current use of insulin E11.9 [facility] [address] [place], [place] [id number] 06/14/2024 Nolberto Love [facility] [address] [place], [place] [id number] 08/06/2024 Nolberto Love Essential hypertensi on I10 ; Type 2 diabetes mellitus without complication, without long-term current use of insulin E11.9 and Erectile dysfunction, unspecified erectile dysfunction type N52.9 [facility] [address] [facility] [address] [place], [place] [id number] 08/07/2024 J Jimmie Love [facility] [address] [place], [place] [id number] 08/24/2024 J Jimmie Love Essential hypertensi on I10 ; Type 2 diabetes mellitus without complication, without long-term current use of insulin E11.9 and Localized edema R60.0 [facility] [address] [place], [place] [id number] 08/27/2024 Nolberto Love [facility] [address] [place] [id number] 09/26/2024 Melo Dominguez Acute pain of right knee M25.561 and Positive Samy test of right knee, initial encounter S8 ASSESSMENTS Encounter Date Diagnosis Assessment Notes Treatment Notes Treatment Clinical Notes 10/17/2023 Essential hypertension (ICD-10 - I10) continue current therapy 10/17/2023 Type 2 diabetes mellitus without complication, without long-term current use of insulin (ICD-10 - E11.9) 12/30/2023 Bilateral low back pain, unspecified chronicity, unspecified whether sciatica present (ICD-10 - M54.50) 01/06/2024 Lumbago with sciatica, right side (ICD-10 - M54.41) 01/06/2024 Other chronic pain (ICD-10 - G89.29) 01/13/2024 Lumbago with sciatica, right side (ICD-10 - M54.41) 01/13/2024 Bulging lumbar disc (ICD-10 - M51.36) 04/16/2024 Essential hypertension (ICD-10 - I10) CONSIDER: D/C Ramipril, Rx Valsartan 320mg. Discussed with patient. 04/16/2024 Type 2 diabetes mellitus without complication, without long-term current use of insulin (ICD-10 - E11.9) 05/28/2024 Persistent depressive disorder (ICD-10 - F34.1) 06/04/2024 Essential hypertension (ICD-10 - I10) Recommend OTC potassium 99mg, 2 daily 06/04/2024 Type 2 diabetes mellitus without complication, without long-term current use of insulin (ICD-10 - E11.9) 08/06/2024 Essential hypertension (ICD-10 - I10) 08/24/2024 Type 2 diabetes mellitus without complication, without long-term current use of insulin (ICD-10 - E11.9) 09/26/2024 Acute pain of right knee (ICD-10 - M25.561) 09/26/2024 Positive Samy test of right knee, initial encounter (ICD-10 - S83.A) 08/06/2024 Type 2 diabetes mellitus without complication, without long-term current use of insulin (ICD-10 - E11.9) 08/24/2024 Essential hypertension (ICD-10 - I10) 08/24/2024 Localized edema (ICD-10 - R60.0) 08/06/2024 Erectile dysfunction, unspecified erectile dysfunction type (ICD-10 - N52.9) 04/16/2024 Degenerative disc disease, cervical (ICD-10 - M50.30) 01/13/2024 Lumbar facet arthropathy (ICD-10 - M47.816) 10/17/2023 Carotid stenosis, bilateral (ICD-10 - I65.23) 04/16/2024 Tear of left rotator cuff, unspecified tear extent, unspecified whether traumatic (ICD-10 - M75.102) 04/16/2024 Persistent depressive disorder (ICD-10 - F34.1) PLAN OF TREATMENT Pending Test Test Name Order Date X ray : Knee, right 09/26/2024 Next Appt Details Provider Name:Melo Duque , 09/26/2024 01:30:00 PM, [address] [facility], [address], [place], [place], [id number], Provider Name:Nolberto Aguayo er, 11/26/2024 03:45:00 PM, [address] [facility], [address], [place], [place], [id number], Insurance Providers Payer Name Payer Address Payer Phone Subscriber Number Group Number Insured Name Patient Relationship to Insured Coverage Start Date Coverage End Date [facility] [address] [place] [address] [id number] JEFF JAUREGUI Self - patient is the insured MEDICATIONS ADMINISTERED Medication Instructions Date of Administration Dosage Notes Dexamethasone 04/20/2016 1 mL MEDICAL (GENERAL) HISTORY Medical History History ICD Code Hyperlipidemia Hypertension Seasonal Allergies Cervical Disc Disease Cervical spine osteoarthritis, MRI 2019 Left rotator cuff tear, MRI 2022 Surgical History Surgery Date(Month/Year) Umbilical Hernia Repair 07/16/2020 LT Knee Arthroscopy, [facility] Hospitalization History Reason Date(Month/Year) RT Leg Laceration 08/14/2016
--- OUTSIDE RECORDS SUMMARY | 2024-09-26 14:18 | XMS_ITS ---
Author Organization [facility] Address [address] [place] [id number] Care Team Providers Care Director Global Name Role Phone Nolberto Love Primary Care Provider ALLERGIES Allergen (clinical drug ingredient) Drug/Non Drug Allergy documented on EMR Reaction Allergy Type Onset Date Status Penicillin Unknown Drug Allergy Active RESULTS Component Value Reference Range Notes P-Comprehensive Metabolic Pa raghav (CMP) Reviewed date:08/27/2024 10:39:06 AM Interpretation:cl 95, gluc 117 Performing Lab: Notes/Report: Test performed by [facility], [address] , [address], [place] [address] Jonah Drew MD, Ferry Operator CLIA: [id number] Sodium 135 135-145 mmol/L Potassium 4.5 3.5-5.3 [...] 0.5 <0.2-1.2 mg/dL A/G Ratio 1.8 1.1-2.5 REASON FOR VISIT 3 week f/u MEDICATIONS Medication SIG (Take, Route, Frequency, Duration) Notes Start Date End Date Status Triamterene-HCTZ 37.5-25 MG TAKE 1 TABLET BY MOUTH EVERY DAY FOR 90 DAYS for 90 Active Atorvastatin Calcium 10 MG 1 tab(s) orally once a day for 90 days Active Metoprolol Succinate ER 100 MG TAKE 1 TABLET BY MOUTH EVERY DAY FOR 90 DAYS for 90 days Active Furosemide 40 MG 1 tablet Orally Once a day for 30 day(s) 08/06/2024 Active Sildenafil Citrate 50 MG 1 tablet as nee ded Orally 07/14/2023 Active Valsartan 320 MG 1 tablet Orally Once a day for 30 day(s) 06/04/2024 Active Fenofibrate 145 MG TAKE 1 TABLET BY MARGARET TH EVERY DAY for 90 Active amLODIPine Besylate 2.5 MG TAKE 1 TABLET BY MOUTH EVERY DAY for 90 Active metFORMIN HCl 500 MG TAKE 1 TABLET BY MO UTH EVERY DAY FOR 90 DAYS for 90 Active Sertraline HCl 50 MG 2 tablet Orally onc e daily for 90 days Active Gabapentin 100 MG 1 capsule Orally Two times a day for 30 day(s) 01/19/2024 Not-Taking CareTouch CPAP & BIPAP Hose 1 DIRECTED 02/02/2021 Active VITAL SIGNS Weight 294.6 lbs 08/24/2024 Blood pressure systolic 140 mm Hg 08/24/20 24 Blood pressure diastolic 82 mm Hg 024 Heart Rate 59 /min 08/24/2024 Height 72 in 08/24/2024 BMI 39.95 kg/m2 08/24/2024 Encounters Encounter Location Date Provider Diagnosis [facility] [address] [facility] [address] [place], [place] [id number] 08/24/2024 Nolberto Love Essential hypertensi on I10 ; Type 2 diabetes mellitus without complication, without long-term current use of insulin E11.9 and Localized edema R60.0 ASSESSMENTS Encounter Date Diagnosis Assessment Notes Treatment Notes Treatment Clinical Notes 08/24/2024 Essential hypertension (ICD-10 - I10) 08/24/2024 Type 2 diabetes mellitus without complication, without long-term current use of insulin (ICD-10 - E11.9) 08/24/2024 Localized edema (ICD-10 - R60.0) PLAN OF TREATMENT Next Appt Details Follow Up: 3 Months, Reason: Provider Name:Melo [place] ry, 09/26/2024 01:30:00 PM, [address], [address], [place], [phone], Provider Name:Nolberto Jimmie Dede er, 11/26/2024 03:45:00 PM, [address], [address], [place], [phone], Progress Notes * Examination Category Sub-Category Detail Notes General Examination HEENT: unremarkable Heart: RSR, aortic murmur a nd mitral component. Lungs: clear to auscultatio n Extremities: 2+ leg edema, restri cted ROM of the left shoulder, restricted abduction General Appearance: NAD Skin: normal, no rash Neurologic Exam: Intact, gait normal Neck: supple, no lymphaden opathy Oral cavity: no lesions, mucosa m oist and WNL, no erythema Peripheral pulses: normal (2+) bilatera lly Chest: normal shape and exp ansion History and Physical Notes * HPI (History of Present Illness) Category Sub-Category Detail Notes Cardiology Short of Breath Chest Pain Palpitations Dizziness
--- OUTSIDE RECORDS SUMMARY | 2024-09-26 14:18 | XMS_ITS ---
Care Plan - [facility], [facility] Created on: September 26, 2024 SantizoMaynor : 1970 Sex: Male Author Organization [facility] Address [address] [place] [address] Phone Care Team Providers Care Blueprint Clerk Name Role Phone AGAPITO TANG, BERNADETTE SOLOMON Primary Care Provider [phone] Pedro TANG, Laurent Flowers Unavailable [phone]
--- OUTSIDE RECORDS SUMMARY | 2024-09-26 14:18 | XMS_ITS ---
Author Organization [facility] Address [address] [place] [address] Phone Care Team Providers Care Refund Specialist Name Role Phone AGAPITO TANG, BERNADETTE SOLOMON Primary Care Provider [phone] Pedro TANG, Laurent Flowers Unavailable [phone] Problems Includes: Active, inactive, and resolved Problems All Visits Onset Date Resolved Date Provider Condition S tatus Joint Pain, Localized in the Left Shoulder 10/31/2023 Laurent samuel MD Active Last Documented On 3 3:12PM ; [facility] Plan of Treatment No Plan of Treatment Recorded Assessments Includes: Assessments for all patient encounters Findings Encounter Date Overweight Physician Specified with Laurent Vasquez MD 10/31/2023 Last Documented On 3 7:29AM ; [facility] Medical Equipment - Implanted Devices Includes: Current and historical Devices No Medical Equipment Recorded Medications Administered Includes: Administered Medications in patient's chart No Administered Medications Recorded Vital Signs Includes: Vital Signs from 09/26/2023 through 09/26/2024 Vital Name 10/31/2023 02:47P Height (in) 72 Weight (lb) 290 Body Mass Index 39.3 Body Surface Area 2.5 Note: bdf Last Documented: On 10/31/2023 2:47PM ; [facility] Results Includes: Results from 09/26/2023 through 09/26/2024 No Results Recorded For Specified Dates History of Present Illness History of Present Illness not supported for this document type No History of Present Illness Recorded Social History Description Last Updated Tobacco non-user 11/09/2023 Last Documented On 3 7:29AM ; [facility] No caffeine use 11/09/2023 Last Documented On 3 7:29AM ; [facility], [facility] No recent change in diet 11/09/2023 Last Documented On 3 7:29AM ; [facility] Not a current smoker. 11/09/2023 Last Documented On 3 7:29AM ; [facility], [facility] Not exercising regularly 11/09/2023 Last Documented On 3 7:29AM ; [facility], [facility] Not using alcohol 11/09/2023 Last Documented On 3 7:29AM ; [facility], [facility] Not using drugs 11/09/2023 Last Documented On 3 7:29AM ; [facility], [facility] Smoking Status Unknown Medical History Includes: Medical History in patient's chart Description Last Updated Past medical and surgical history non-co ntributory 11/09/2023 Last Documented On 3 7:29AM ; [facility], [facility] Family History Includes: Family History in patient's chart Description Last Updated No significant family history 11/09/2023 Last Documented On 3 7:29AM ; [facility], [facility] Review of Systems Review of Systems not supported for this document type No Review of Systems Recorded Mental Status Description No anxiety Functional Status No Functional Status Recorded Physical Exam Physical Exam not supported for this document type No Physical Exam Recorded Encounters Includes: Encounters from 09/26/2023 through 09/26/2024 Encounter Provider Location Date Check-In Time Check-Out Time Diagnosis Physician Specified Laurent Vasquez MD [facility] B 10/31/20 23 2:40PM 3:18PM Overweight Insurance Includes: Active Insurance Policies Plan Name Member ID Group # Subscriber Relationship Effect desean Dates 1 - [facility] [id number] Maynor Quiroz Clinical Notes Includes: Signed Clinical Notes starting from 11/11/2022 * Progress note Date Encounter Last Documented by 10/31/2023 Physician Specified Last srinivasa de on 11/09/2023; 7:29 AM, Laurent Vasquez MD; [facility] Active Problems & Conditions - Joint Pain, Localized in the Left Shoulder Chief Complaint The Chief Complaint is: Left shoulder pain. Referred Here Referred by. History of Present Illness Maynor Santizo is a 53 year old male. - Allergy list reviewed - Problem list reviewed - Medication list reviewed 53 year old male presents in office today for evaluation of his left shoulder. He is limited in his mobility and in his ability to do normal daily activities. He does remember a fall that several years ago where symptoms began. Past Medical/Surgical History Past medical and surgical history non-contributory. Social History Not a current smoker. Current diet: No recent change in diet. Caffeine use: No caffeine use. Tobacco use: Tobacco non-user. Alcohol: Not using alcohol. Drug Use: Not using drugs. Habits: Not exercising regularly. Family History No significant family history Review Of Systems Systemic: Not feeling tired, no recent weight loss, and no recent weight gain. Head: No headache and no sinus pain. Eyes: No vision problems, no Cataracts, no Glasses/Contacts, and no Glaucoma. Otolaryngeal: No hearing loss and no tinnitus. Cardiovascular: No chest pain or discomfort, no palpitations, no Hypertension, and no High Cholesterol. Pulmonary: No daytime asthma symptoms and no chronic cough. No wheezing. Gastrointestinal: No heartburn and no abdominal pain. No Indigestion, no Acid Reflux, no Peptic Ulcer, no GI Stomach Bleed, and no Ulcers. Endocrine: No hot flashes, no muscle weakness, no Diabetes, no Hypothyroid, and no Hyperthyroid. Hematologic: No easy bleeding, no tendency for easy bruising, and no Anemia. Musculoskeletal: No Arthritis and no lower back pain. No soft tissue swelling and no localized joint pain. Neurological: No dizziness, no convulsions, and no numbness. Psychological: No anxiety, no emotional lability, no depression, and no insomnia. Not crying for no reason. Skin: No dry skin. No Ulcers, no Scars, and no rash. Allergic and Immunologic: No complaint of seasonal allergic reaction. Physical Findings - Vitals taken 10/31/2023 02:47 pm bdf Height 72 in Weight 290 lbs Body Mass Index 39.3 kg/m2 Body Surface Area 2.5 m2 PATIENT ALERTED AND ORIENTED X 3 SHOULDER LEFT : INSPECTION: ATROPHY: DEFORMITY: ROM: PFE: 140 Degrees PER: 50 Degrees PIR: AFE: 130 Degrees AER: 45 Degrees AIR: L1 IMPINGEMENT: Positive arc of pain STRENGTH: (ROTATOR CUFF) EMPTY CAN: 3+/5 EXTERNAL ROTATION: 4+/5 SPECIAL TESTING: BELLY PRESS: Negative BEAR HUG: LIFT OFF: Positive SPEEDS: Positive UPPER CUT: ANTERIOR APPREHENSION: POSTERIOR LOAD AND SHIFT: SULCUS TEST: NEURO/VASCULAR SENSATION: Normal AXILLARY: LABC: RADIAL: MEDIAN: ULNAR: MOTOR: Normal DELTOID: BICEPS: TRICEPS: EPL: FPL: IO: PULSES: Normal RADIAL: ULNAR: Tests MRI (Left shoulder) : Full-thickness supraspinatus tear with retraction lateral aspect of the humeral head. no significant muscle atrophy it is approximately 2 cm anterior to posterior dimension. Intrasubstance biceps signal consistent with possible partial-thickness long head biceps tendon tear Assessment - Overweight Left medium full thickness supraspinatous rotator cuff tear Plan 53 year old male presents in office today for evaluation of his left shoulder. He is limited in his mobility and in his ability to do normal daily activities. After review of his MRI and examination in office today, I believe the best course of treatment would be surgical intervention. I have discussed the procedure and post operative recovery time. We have discussed the following physical therapy needs. He understands the risks and benefits. I have answered all questions in office. [place] [facility] [place] 12 weeks of conservative treatment. Conservative measures have included rest, activity modification, oral anti-inflammatories, exercise treatment and local pain reduction modalities. The patient understands the risk of surgery to include but are not limited to infection, possible nerve damage, tendon or vessel injury, scar sensitivity and anesthesia.The patient understands the need for postoperative rehabilitation and therapy. Risks benefits and alternatives were discussed with the patient patient gave informed consent to undergo surgery. We discussed specifically the risks of infection blood clots nerve vessel damage as well as potential loosening of the components and/or fracture of the bone. The patient had no further questions regarding the surgery or potential risks. Notes This dictation was done with voice recognition software and may contain errors and omissions. Practice Management Use of tobacco assessment performed Review of medications documented.
--- OUTSIDE RECORDS SUMMARY | 2024-09-26 14:18 | XMS_ITS | Clinical Summary ---
Author Organization [facility] , [facility] Address [address] [place] [address] Phone Care Team Providers Care Facilities Maintenance Assistant Name Role Phone AGAPITO TANG, BERNADETTE SOLOMON Primary Care Provider [phone] Pedro TANG, Laurent Flowers Unavailable Unavail able Reason for Visit and Chief Complaint The Chief Complaint is: left shoulder pain Problems Includes: Problems addressed during this encounter and other active Problems Current Visit Onset Date Resolved Date Provider Evonne Anderson Joint Pain, Localized in the Left Shoulder 10/31/2023 Laurent samuel MD Active Last Documented On 3 3:12PM ; [facility] Plan of Treatment 53 year old male presents in office [...] office. [place]: [place] [facility] [place] has exhausted 12 weeks of [...] questions regarding the surgery or potential risks. - Last Documented On 11/09/2023 7:29AM ; [facility] Assessments Includes: Assessments from this encounter Findings - Overweight - Last Documented On 11/09/2023 7:29AM ; [facility] Left medium full thickness supraspinatous rotator cuff tear - Last Documented On 11/09/2023 7:29AM ; [facility] Medical Equipment - Implanted Devices Includes: Current Devices No Medical Equipment Recorded Medications Administered Includes: Administered Medications from this encounter No Administered Medications Recorded Vital Signs Includes: Vital Signs from this encounter Vital Name 10/31/2023 02:47P Height (in) 72 Weight (lb) 290 Body Mass Index 39.3 Body Surface Area 2.5 Note: bdf Last Documented: On 10/31/2023 2:47PM ; [facility] Results Includes: Results discussed during this encounter No Results Recorded For Specified Dates History of Present Illness Includes: History of Present Illness from this encounter AVIVA Santizo is a 53 year old male. - Allergy list reviewed - Problem list reviewed - Medication list reviewed 53 year old male presents in office today for evaluation of his left shoulder. He is limited in his mobility and in his ability to do normal daily activities. He does remember a fall that several years ago where symptoms began. Social History Description Last Updated Tobacco non-user 11/09/2023 Last Documented On 3 7:29AM ; [facility] No caffeine use 11/09/2023 Last Documented On 3 7:29AM ; [facility] No recent change in diet 11/09/2023 Last Documented On 3 7:29AM ; [facility] Not a current smoker. 11/09/2023 Last Documented On 3 7:29AM ; [facility] Not exercising regularly 11/09/2023 Last Documented On 3 7:29AM ; [facility] Not using alcohol 11/09/2023 Last Documented On 3 7:29AM ; [facility] Not using drugs 11/09/2023 Last Documented On 3 7:29AM ; [facility] Smoking Status Unknown Procedures and Surgical History Includes: Procedures from this encounter Procedures Code Diagnosis Performing Provider Service L ocation Service Date use of tobacco assessment performed 1000F Last Documented On 3 7:29AM ; [facility] review of medications documented 1160F Last Documented On 3 7:29AM ; [facility] Medical History Includes: Medical History addressed during this encounter Description Last Updated Past medical and surgical history non-co ntributory 11/09/2023 Last Documented On 3 7:29AM ; [facility] Family History Includes: Family History addressed during this encounter Description Last Updated No significant family history 11/09/2023 Last Documented On 3 7:29AM ; [facility] Review of Systems Includes: Review of Systems from this encounter Systemic: Not feeling tired, no recent weight [...] Immunologic: No complaint of seasonal allergic reaction. Mental Status Includes: Mental Status from this encounter Description No anxiety Functional Status Includes: Functional Status from this encounter No Functional Status Recorded Physical Exam Includes: Physical Exam from this encounter Encounters Encounter Provider Location Date Check-In Time Check-Out Time Diagnosis Physician Specified Laurent Vasquez MD [facility] 10/31/20 2:40PM 3:18PM Overweight Insurance Includes: Active Insurance Policies Plan Name Member ID Group # Subscriber Relationship Effect desean Dates 1 - [facility] [id number] Maynor Santizo Self Clinical Notes Includes: Clinical Notes from this encounter * Progress note Date Encounter Last Documented by 10/31/2023 Physician Specified Last srinivasa de on 11/09/2023; 7:29 AM, Laurent Vasquez MD; [facility], [facility] Active Problems & Conditions - [...] office. Surgery: [place] [facility] [place] has exhausted 12 weeks of [...]
== END 2024-09-26 23:59 | disposition home or self-care (01) ==
LOC: RAD 14:16
PROVIDERS: PCP Family Medicine; Visit Provider Family Medicine
DX: M25.561 Pain in right knee (principal); S83.206A Unspecified tear of unspecified meniscus, current injury, right knee, initial encounter
CPT/HCPCS: 73562

== ENCOUNTER 2024-12-27 15:00 | Outpatient (RCR) | payer BC, SELFPAY ==
--- NOTE | 2024-12-25 19:28 | HMH.PTOPEV ---
PT Outpatient Evaluation Rehab PT Outpatient Evaluation Start: 12/25/24 18:59 Freq: Status: Active Protocol: Document 12/25/24 18:59 MICHAEL (Rec: 12/25/24 19:27 MICHAEL [id number]) E-signed By Rachid Solis, PT Outpatient Therapy Subjective History Subjective History Patient is a 54 year old male presenting to outpatient PT with reports of L post- surgical knee pain S/P L TKA. Sx date 11/27/14. Symptom onset approx 2 years ago. Previous imaging indicated hx of chronic OA. Comorbidities include hx of HTN, diabetes, R knee pain and cervical spine pain. New diagnosis of cancer in past 12 No months? Chief Complaint Pain,Stiff,Swelling,Gives out/ Unstable Symptom Type Ache,Sharp,Dull Symptoms Relieved By Rest/Positioning,Ice, Prescription Meds Symptoms Aggravated By Standing,Physical Activity, Twisting Prior Functional Limitations Standing,Walking Current Functional Limitations Standing,Squatting,Recreation Activity,Walking,Stairs, Balance,Bending/Stooping Symptom Description Constant but Variable Level of pain today (0-10) 4 Pain scale - at its best (0-10) 3 Pain scale - at its worst (0-10) 8 Hip/Knee Eval Gait Observation General Gait Pattern Observation Antalgic Gait,Decrease Weight Bear (L) Assistive Device Assistive Devices Straight Cane Palpation Tenderness left Knee Palpation Finding Tenderness Knee Palpation Overall Comment 2/4 L MJL MMT Hip Strength Reason Not Measured WFL Knee Strength Reason Not Measured WFL ROM Hip ROM Reason Not Measured Within Functional Limits Knee Extension Active Range of Motion ( -3 degrees) Knee Flexion Active Range of Motion ( 104 degrees) Lower Extremity Functional Index Activities Today, do you or would you have any difficulty at all with: a.Any of your usual work, housework or Quite a bit of difficulty school activities b. Your usual hobbies, recreational or Quite a bit of difficulty sporting activities c. Getting into or out of the bath Moderate difficulty d. Walking between rooms A little bit of difficulty e. Putting on your shoes or socks Moderate difficulty f. Squatting Quite a bit of difficulty g. Lifting an object, like a bag of Quite a bit of difficulty groceries from the floor h. Performing light activities around Quite a bit of difficulty your home i. Performing heavy activities around Extreme difficulty or unable your home to perform activity j. Getting into or out of a car Moderate difficulty k. Walking 2 blocks Moderate difficulty l. Walking a mile Moderate difficulty m. Going up or down 10 stairs (about 1 Moderate difficulty flight of stairs) n. Standing for 1 hour Extreme difficulty or unable to perform activity o. Sitting for 1 hour Extreme difficulty or unable to perform activity p. Running on even ground Extreme difficulty or unable to perform activity q. Running on uneven ground Extreme difficulty or unable to perform activity r. Making sharp turns while running fast Extreme difficulty or unable to perform activity s. Hopping Extreme difficulty or unable to perform activity t. Rolling over in bed No difficulty LEFI Score Lower Extremity Functional Index Score 24 Outpatient Therapy Assessment Impairments Problems/Impairmments Palpation Tenderness,Impaired Range of Motion,Impaired Strength,Impaired Gait Pattern ,Impaired Walking,Impaired Standing,Impaired Household Care,Impaired Stair Climbing, Impaired Incline Stepping, Impaired Stepping on Uneven Surface,Impaired Squatting, Impaired Bending,Impaired Recreational Activities, Impaired Running,Impaired Jumping,Impaired Work Activities,Increased Edema, Subjective C/O Pain Prognosis Rehab Potential Good Clinical Impression Consistent with Diagnosis No Consistent with L TKA Short Term Goals Number of Weeks 2 Decrease Subjective C/O Pain Yes: 5/10 at worst Patient to be Ind w/ HEP Yes Senior Lead Software Engineer Goals Number of Weeks 4-6 Decreased Palpation Tenderness Yes: 1/4 Increase Range of Motion Yes: 0-120 Increase Strength 5/5 all planes hip/thigh mm Increase Ability to Walk Yes: 1 hr without difficulty Increase Ability to Stand Yes: Improve Ability For Household Care Yes Improve Ability to Climb Stairs Yes: 1 flight up/down without difficulty Improve Tolerance to Work Activities Yes Improve LEFI Score Yes: >60 Decrease Subjective C/O Pain 2/10 at worst Outpatient Therapy Plan of Care Treatment Plan May Include Therapeutic Exercise Including Home Yes Exercise Program Manual Therapy Techniques Yes Neuromuscular Re-education Yes Therapeutic Activities to Return to Yes Previous Functional/Work Level Gait Training Yes ADL/Self Care Education Yes Dry Needling Yes Thermal Modalities Yes Electrical Stimulation Yes Ultrasound/Phonophoresis Yes Iontophoresis Yes Orthotics/Bracing/Splinting Yes Vasopneumatic Compression Pump Yes Massage Yes Manual Lymphatic Drainage Yes Wound Care Yes Eval/Re-Eval Yes Frequency Times per week 2-3 Duration Number of Weeks 6-8 Addendums This patient is a candidate for social No or vocational rehab? Patient/Guardian verbally acknowledges Yes understanding of treatment program and consents to further treatment? Patient/Guardian verbally acknowledges Yes understanding of diagnosis, prognosis and goals for treatment? Eval Complexity PT Charges 26714 - Moderate Complexity Shoulder/Elbow Eval Shoulder Objective Measurements Elbow Objective Measurements PHYSICIAN CERTIFICATION: I certify the specified therapy services for Maynor Santizo (Dale) are required, authorized, and reviewed every 30 days.
== END 2024-12-27 23:59 | disposition home or self-care (01) ==
LOC: PT 15:00
PROVIDERS: PCP Family Medicine; Visit Provider Anesthesiology
DX: M25.561 Pain in right knee (principal); Z96.651 Presence of right artificial knee joint
CPT/HCPCS: 97110; 97163; 97530

== ENCOUNTER 2025-01-17 13:00 | Outpatient (RCR) | payer BC, SELFPAY | END 2025-01-17 23:59 | disposition home or self-care (01) | LOC: PT 13:00 | PROVIDERS: PCP Family Medicine; Visit Provider Orthopaedic Surgery | DX: Z96.651 Presence of right artificial knee joint (principal); Z98.890 Other specified postprocedural states | CPT/HCPCS: 97110; 97112; 97530 ==

== ENCOUNTER 2025-02-21 13:00 | Outpatient (RCR) | payer BC, SELFPAY | END 2025-02-21 23:59 | disposition home or self-care (01) | LOC: PT 13:00 | PROVIDERS: PCP Family Medicine; Visit Provider Orthopaedic Surgery | DX: Z96.651 Presence of right artificial knee joint (principal) | CPT/HCPCS: 97110; 97164; 97530 ==

== ENCOUNTER 2025-02-26 13:00 | Outpatient (RCR) | payer BC, SELFPAY | END 2025-02-26 23:59 | disposition home or self-care (01) | LOC: PT 13:00 | PROVIDERS: PCP Family Medicine | DX: Z96.651 Presence of right artificial knee joint (principal) | CPT/HCPCS: 97110 ==

== ENCOUNTER 2025-05-18 11:04 | Outpatient (CLI) | payer BC, SELFPAY ==
--- OUTSIDE RECORDS SUMMARY | 2025-01-14 07:45 | XMS_ITS ---
[facility] Address [address] [place] [id number] Care Team Providers Care Manager Grocery Name Role Phone Nolberto Love Primary Care Provider Allergies Allergen (clinical drug ingredient) Drug/Non Drug Allergy documented on EMR Reaction Allergy Type Onset Date Status Penicillin Unknown Drug Allergy Active REASON FOR VISIT 6 WEEK F/U Medications Medication SIG (Take, Route, Frequency, Duration) Notes Start Date End Date Status Fenofibrate 145 MG TAKE 1 TABLET BY MARGARET TH EVERY DAY for 90 days Active Triamterene-HCTZ 37.5-25 MG TAKE 1 TABLE T BY MOUTH EVERY DAY FOR 90 DAYS for 90 Active amLODIPine Besylate 2.5 MG TAKE 1 TABLET BY MOUTH EVERY DAY for 90 Active Sertraline HCl 50 MG TAKE 1 TABLET BY MO UTH EVERY DAY for 90 Active Sildenafil Citrate 50 MG 1 tablet as needed Orally 07/14/2023 Active metFORMIN HCl 500 MG TAKE 1 TABLET BY MO UTH EVERY DAY FOR 90 DAYS for 90 Active Valsartan 320 MG TAKE 1 TABLET BY MARGARET TH EVERY DAY for 90 Active Doxazosin Mesylate 1 MG 1 tablet Orally At Bed Time for 30 day(s) 01/14/2025 Active Atorvastatin Calcium 10 MG 1 tab(s) oral ly once a day for 90 days Active Metoprolol Succinate ER 100 MG TAKE 1 TABLET BY MOUTH EVERY DAY FOR 90 DAYS for 90 days Active Celecoxib 200 MG 1 capsule with food Orally Once a day for 30 day(s) Active CareTouch CPAP & BIPAP Hose 1 DIRECTED 02/03/20 21 Active Problems Problem Type SNOMED Code ICD Code Onset Dates Problem Status W/U Status Risk Notes Problem [id number] 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) Active confirmed Vital Signs Blood pressure systolic 150 mm Hg 01/14/20 25 Blood pressure diastolic 80 mm Hg 025 Heart Rate 57 /min 01/14/2025 Height 72 in 01/14/2025 Weight 292.8 lbs 01/14/2025 BMI 39.71 kg/m2 01/14/2025 Encounters Encounter Location Date Provider Diagnosis [facility] [address] [facility] [address] [facility] [address] [place] [id number] 01/14/2025 Nolberto Love Essential hypertensi on I10 and History of total right knee replacement Z96.651 Assessments Encounter Date Diagnosis (ICD Code) Assessment Notes Treatment Notes Treatment Clinical Notes Section Notes 01/14/2025 Essential hypertension (ICD-10 - I10) 01/14/2025 History of total right knee replacement (ICD-10 - Z96.651) Plan Of Treatment Medication Medication Name Sig Start Date Stop Date Notes Doxazosin Mesylate 1 MG 1 tablet Orally At Bed Time for 30 day(s) 01/14/2025 Next Appt Details Follow Up: 4 Weeks, Reason: Provider Name:Nolberto Aguayo er, 05/23/2025 03:45:00 PM, [address] [facility] [address] [facility], [address], [place], [phone], Progress Notes * JEFF JAUREGUIOB: (55 yo M)Acc No.[id number]:01/14/2025 Progress Notes Patient: JEFF BARTH Provider: Nolberto Love M.D. :1970 A ge:54 Y S ex:Male Date:01/14/2025 Address:[address] [place] [address] [id number] Subjective: * Chief Complaints: * 1 . 6 WEEK F/U. * HPI: C ardiology: The pt is here for a check up on Hypertension and discuss medication change. Pt states he had right knee replacement 11/27/24 and that is doing good. Dr. Macario Aldridge. Pt states he does check his BP at home and it has been running in the 140-150's/60-70's. Denies : Chest Pain. D enies : Short of Breath. D enies : Dizziness. D enies : Palpitations. * ROS: D ERMATOLOGY: no R tiffanie. n o H radha. G ASTROENTEROLOGY: no N ausea. n o V omiting. n o D iarrhea.? U ROLOGY: no D ifficulty urinating. n o B lood in urine. * Medical History: H yperlipidemia, Hypertension, Seasonal Allergies, Cervical Disc Disease, Cervical spine osteoarthritis, MRI 2019, Left rotator cuff tear, MRI 2022. * Surgical History: U mbilical Hernia Repair 07/16/2020, LT Knee Arthroscopy, [facility] 02/13/2021. * Hospitalization/Major Diagno stic Procedure: R T Leg Laceration 08/14/2016. * Family History: F ather: 55 yrs, emphysema. M other: 86 yrs. 2 sister(s) . 1 son(s) , 1 daughter(s) - healthy. . * Social History: C URRENT TOBACCO USE S moking Status: Patient does NOT smoke. C affeine: yes, frequency:pop. Home smoke detector use: yes. Marital Status: . Alcohol: Yes, Type: , Frequency: ,Years: , Determination:1-2 beers qd. * Medications: T aking Celecoxib 200 MG Capsule 1 capsule with food Orally Once a day , Taking CareTouch CPAP & BIPAP Hose MACHINE AND SUPPLIES 1 DIRECTED , Taking Atorvastatin Calcium 10 MG Tablet 1 tab(s) orally once a day , Taking Metoprolol Succinate ER 100 MG Tablet Extended Release 24 Hour TAKE 1 TABLET BY MOUTH EVERY DAY FOR 90 DAYS , Taking Sildenafil Citrate 50 MG Tablet 1 tablet as needed Orally , Taking Valsartan 320 MG Tablet TAKE 1 TABLET BY MOUTH EVERY DAY , Taking metFORMIN HCl 500 MG Tablet TAKE 1 TABLET BY MOUTH EVERY DAY FOR 90 DAYS , Taking amLODIPine Besylate 2.5 MG Tablet TAKE 1 TABLET BY MOUTH EVERY DAY , Taking Sertraline HCl 50 MG Tablet TAKE 1 TABLET BY MOUTH EVERY DAY , Taking Fenofibrate 145 MG Tablet TAKE 1 TABLET BY MOUTH EVERY DAY , Taking Triamterene-HCTZ 37.5-25 MG Tablet TAKE 1 TABLET BY MOUTH EVERY DAY FOR 90 DAYS , Discontinued Furosemide 40 MG Tablet 1 tablet Orally Once a day , Discontinued Meloxicam 15 MG Tablet 1 tablet Orally Once a day , Medication List reviewed and reconciled with the patient * Allergies: P enicillin. Objective: * Vitals: W t:292.8, Temp:98.4, BP:150/80, HR:57, Nurse:ADAM, Ht: 72, BMI:39.71. * Examination: G eneral Examination: General Appearance: N AD. HEENT: u nremarkable. Oral cavity: n o lesions, mucosa moist and WNL, no erythema. Neck: s upple, no lymphadenopathy. Chest: n ormal shape and expansion. Heart: R SR, aortic murmur and m itral component.. Lungs: c lear to auscultation. Neurologic Exam: I ntact, gait normal. Skin: n ormal, no rash. Peripheral pulses: n ormal. Extremities: 2 + l eg edema, s car right knee healing well, good ROM. Assessment: * Assessment: 1. E ssential hypertension - I10 (Primary) 2 . H istory of total right knee replacement - Z96.651 Plan: * Treatment: * Procedure Codes: 3 077F SYST BP = 140 MM HG6 IT, 3079F DIAST BP 80-89 MM HG * Follow Up: 4 Weeks * Billing Information: * Visit Code: 63767 Office Visit, Est Pt., Level 3. * Procedure Codes: 3077F SYST BP = 140 MM HG6 IT. 3079F DIAST BP 80-89 MM HG. * Electronic signature of Nolberto Love MD on 05/18/2025 at 11:07 AM EDT Sign off status: Pending * Provider: Nolberto Love M.D. Date: 0 01/14/2025 Generated for Alaina conti/Ena/eTkailasmitting on: 0 05/18/2025 11:07 AM EDT History and Physical Notes * HPI (History of Present Illness) Category Sub-Category Detail Notes Category Not es Cardiology Short of Breath Chest Pain Palpitations Dizziness Examination Category Sub-Category Detail Notes Category Not es General Examination HEENT: unremarkable Heart: RSR, aortic murmur a nd mitral component. Lungs: clear to auscultatio n Extremities: 2+ leg edema, scar r ight knee healing well, good ROM General Appearance: NAD Skin: normal, no rash Neurologic Exam: Intact, gait normal Neck: supple, no lymphaden opathy Oral cavity: no lesions, mucosa m oist and WNL, no erythema Peripheral pulses: normal Chest: normal shape and exp ansion
--- OUTSIDE RECORDS SUMMARY | 2025-02-11 07:30 | XMS_ITS ---
Author Organization [facility] Address [address] [facility] [address] [place] [phone] Care Team Providers Care Brick Grader Name Role Phone Nolberto Love Primary Care Provider Allergies Allergen (clinical drug ingredient) Drug/Non Drug Allergy documented on EMR Reaction Allergy Type Onset Date Status Penicillin Unknown Drug Allergy Active Results Component Value Reference Range Notes P-Basic Metabolic Panel (BMP ) Reviewed date:02/12/2025 04:24:54 PM Interpretation:Na 129, chlor 94 Performing Lab: Notes/Report: Test performed by [facility] [address] [place] [address] , [address], [place] [address] Jonah Drew MD, [facility] CLIA: [id number] Sodium 129 135-145 mmol/L Potassium 4.7 3.5-5.3 mmol/L Chloride 94 97-108 mmol/L CO2 28 22-32 mmol/L Glucose 92 65-99 mg/dL BUN 14 6-20 mg/dL Creatinine 1.06 0.70-1.30 mg/dL Calcium 9.4 8.6-10.4 mg/dL eGFR by Creatinine 82 >59 mL/min/1.73m2 REASON FOR VISIT 1 month f/u Medications Medication SIG (Take, Route, Frequency, Duration) Notes Start Date End Date Status Atorvastatin Calcium 10 MG TAKE 1 TABLET BY MOUTH EVERY DAY FOR 90 DAYS for 90 Active Doxazosin Mesylate 1 MG 1 tablet Orally At Bed Time for 30 day(s) 01/14/2025 Active Triamterene-HCTZ 37.5-25 MG TAKE 1 TABLE T BY MOUTH EVERY DAY FOR 90 DAYS for 90 Active Fenofibrate 145 MG TAKE 1 TABLET BY MARGARET EVERY DAY for 90 days Active Sertraline HCl 50 MG TAKE 1 TABLET BY MO [facility] EVERY DAY for 90 Active Valsartan 320 MG TAKE 1 TABLET BY MARGARET EVERY DAY for 90 Active Sildenafil Citrate 50 MG 1 tablet as needed Orally 07/14/2023 Active CareTouch CPAP & BIPAP Hose 1 DIRECTED 02/03/20 21 Active amLODIPine Besylate 2.5 MG TAKE 1 TABLET BY MOUTH EVERY DAY for 90 Active metFORMIN HCl 500 MG TAKE 1 TABLET BY MO UTH EVERY DAY FOR 90 DAYS for 90 Active Celecoxib 200 MG 1 capsule with food Orally Once a day for 30 day(s) Active Metoprolol Succinate ER 100 MG TAKE 1 TABLET BY MOUTH EVERY DAY for 90 Active Problems Problem Type SNOMED Code ICD Code Onset Dates Problem Status W/U Status Risk Notes Problem Laceration of finger of right hand (07480377946719 101) Laceration of finger of right hand (883.0) Active confirmed Vital Signs Blood pressure systolic 150 mm Hg 02/12/20 25 Blood pressure diastolic 80 mm Hg 025 Heart Rate 57 /min 02/11/2025 Height 72 in 02/11/2025 Weight 298.4 lbs 02/11/2025 BMI 40.47 kg/m2 02/11/2025 Repeat ZF=179/74 Encounters Encounter Location Date Provider Diagnosis [facility] [address] [phone] 02/11/2025 Nolberto Love Essential hypertensi on I10 ; Open wound T14.8XXA and Laceration of finger of right hand S61.219A Assessments Encounter Date Diagnosis (ICD Code) Assessment Notes Treatment Notes Treatment Clinical Notes Section Notes 02/11/2025 Essential hypertension (ICD-10 - I10) 02/11/2025 Open wound (ICD-10 - T14.8XXA) 02/11/2025 Laceration of finger of right hand (ICD-10 - S61.219A) No treatment of the finger tip required. Expected to heal in adequately. Wound cleaned, dressing applied. Plan Of Treatment Treatment Notes Assessment Notes Laceration of finger of right hand No tr eatment of the finger tip required. Expected to heal in adequately. Wound cleaned, dressing applied. Next Appt Details Follow Up: 2 Months, Reason: Provider Name:Nolberto Aguayo er, 05/23/2025 03:45:00 PM, [address], [address], [place], [phone], Progress Notes * JEFF JAUREGUIeDOB: (55 yo M)Acc No.[id number]:02/11/2025 Progress Notes Patient: JEFF BARTH Provider: Nolberto Love M.D. :1970 A ge:54 Y S ex:Male Date:02/11/2025 Address:[address] [place] [address] S , [phone] Subjective: * Chief Complaints: * 1 . 1 month f/u. * HPI: C ardiology: The pt is here for a follow up on Hypertension and medication change. Pt states he does check his BP occasionally and it is doing better. Pt states he was slicing potatoes and sliced his right middle finger tip. His last tetanus was 2019. Denies : Chest Pain. D enies : [...] mbilical Hernia Repair 07/16/2020, LT Knee Arthroscopy, [facility] 02/13/2021. * Hospitalization/Major Diagno stic Procedure: R [...] MACHINE AND SUPPLIES 1 DIRECTED , Taking Sildenafil Citrate 50 MG Tablet [...] EVERY DAY FOR 90 DAYS , Taking Doxazosin Mesylate 1 MG Tablet 1 tablet Orally At Bed Time , Taking Atorvastatin Calcium 10 MG Tablet TAKE 1 TABLET BY MOUTH EVERY DAY FOR 90 DAYS , Taking Metoprolol Succinate ER 100 MG Tablet Extended Release 24 Hour TAKE 1 TABLET BY MOUTH EVERY DAY , Medication List reviewed and reconciled with the patient * Allergies: P enicillin. Objective: * Vitals: W t:298.4, Temp:98.5, BP:150/80, HR:57, Nurse:ADAM, Ht: 72, BMI:40.47. Repeat JT=869/74. * Examination: G eneral Examination: General Appearance: [...] n ormal. Extremities: 2 + l eg edema. Right hand 3rd digit with laceration of the tip with 9mm area of missing tissue.. * Physical Examination: Drawing:[id number] Assessment: * Assessment: 1. E ssential hypertension - I10 (Primary) 2 . O pen wound - T14.8XXA ? 3 . L aceration of finger of right hand - S61.219A Plan: * Treatment: Value Reference Range B UN 14 6-20 - mg/dL * C alcium 9.4 8.6-10.4 - mg/dL * C hloride 94 L 97-108 - mmol/L * C O2 28 22-32 - mmol/L * C reatinine 1.06 0.70-1.30 - mg/dL * G lucose 92 65-99 - mg/dL * P otassium 4.7 3.5-5.3 - mmol/L * S odium 129 L 135-145 - mmol/L * e GFR by Creatinine 82 >59 - mL/min/1.73m2 * TemiShannon 02/12/2025 04: 24:46 PM > see phone encounter 2.?Laceration of finger of right hand? Notes: No treatment of the finger tip required. Expected to heal in adequately. Wound cleaned, dressing applied.?? * Procedure Codes: 3 077F SYST BP = 140 MM HG6 IT, 3079F DIAST BP 80-89 MM HG * Follow Up: 2 Months * Billing Information: * Visit Code: 87789 Office Visit, Est Pt., Level 4. * Procedure Codes: 3077F SYST BP = 140 MM HG6 IT. 3079F DIAST BP 80-89 MM HG. Images * Physical Examination/ [id number] * Electronic signature of Nolberto Love MD on 05/18/2025 at 11:08 AM EDT Sign off status: Pending * Provider: Nolberto Love M.D. Date: 0 02/11/2025 Generated for Alaina conti/Ena/eTransmitting on: 0 05/18/2025 11:08 AM EDT History and Physical Notes * HPI (History of Present Illness) Category Sub-Category Detail Notes Category Not es Cardiology Short of Breath Chest Pain Palpitations Dizziness Examination Category Sub-Category Detail Notes Category Not es General Examination HEENT: unremarkable Heart: RSR, aortic murmur a nd mitral component. Lungs: clear to auscultatio n Extremities: 2+ leg edema. Right hand 3rd digit with laceration of the tip with 9mm area of missing tissue. General Appearance: NAD Skin: normal, no rash Neurologic Exam: Intact, gait normal Neck: supple, no lymphaden opathy Oral cavity: no lesions, mucosa m oist and WNL, no erythema Peripheral pulses: normal Chest: normal shape and exp ansion
--- OUTSIDE RECORDS SUMMARY | 2025-05-17 10:36 | XMS_ITS ---
Author Organization [facility] Address [address] [facility] [address] [place] [id number] Care Team Providers Care Chemical Processing Supervisor Name Role Phone Nolberto Love Primary Care Provider [phone] REASON FOR VISIT lab order Encounters Encounter Location Date Provider [facility] 36 [facility] [address] [place] [phone] 05/17/2025 Nolberto Love Essential hypertensi on I10 ; Mixed hyperlipidemia E78.2 ; Benign prostatic hyperplasia without lower urinary tract symptoms N40.0 and Type 2 diabetes mellitus without complication, without long-term current use of insulin E11.9 Assessments Encounter Date Diagnosis (ICD Code) Assessment Notes Treatment Notes Treatment Clinical Notes Section Notes 05/17/2025 Essential hypertension (ICD-10 - I10) 05/17/2025 Mixed hyperlipidemia (ICD-10 - E78.2) 05/17/2025 Benign prostatic hyperplasia without lower urinary tract symptoms (ICD-10 - N40.0) 05/17/2025 Type 2 diabetes mellitus without complication, without long-term current use of insulin (ICD-10 - E11.9) Plan Of Treatment Pending Test Test Name Order Date H-CBC 05/17/2025 H-Microalbumine/Creatinine 05/17/2025 H-Lipid Panel 05/17/2025 H-CMP 05/17/2025 H-Glycohemoglobin A1C 05/17/2025 H-PSA 05/17/2025 Next Appt Details Provider Name:Nolberto Aguayo er, 05/23/2025 03:45:00 PM, [address], [address], [place], [phone], Progress Notes * JEFF JAUREGUIOB: (55 yo M)Acc No.[id number]:05/17/2025 Patient: JEFF BARTH :1970 A ge:55 Y S ex:Male Address:[address] [place] [address] , [place], [phone] Subjective: * Chief Complaints: * L ab order * Medical History: * Surgical History: * Hospitalization/Major Diagno stic Procedure: * Medications: Objective: * Vitals: * Physical Examination: Assessment: * Assessment: 1. E ssential hypertension - I10 (Primary) 2 . M ixed hyperlipidemia - E78.2 3 . B enign prostatic hyperplasia without lower urinary tract symptoms - N40.0? 4. T ype 2 diabetes mellitus without complication, without long-term current use of insulin - E11.9 Plan: * Treatment: 2. M ixed hyperlipidemia L AB: H-Lipid Panel 3. B enign prostatic hyperplasia without lower urinary tract symptoms L AB: H-PSA 4. T ype 2 diabetes mellitus without complication, without long-term current use of insulin L AB: H-Microalbumine/Creatinine L AB: H-Glycohemoglobin A1C * Procedure Codes: * true * Date: Generated for Printi ng/Faxing/eTransmitting on: 0 05/18/2025 11:07 AM EDT
--- OUTSIDE RECORDS SUMMARY | 2025-05-18 11:08 | XMS_ITS | Patient Health Record ---
Author Organization [facility] Address [address] [facility] [address] [place] [id number] Care Team Providers Care Voice Engineer Name Role Phone Nolberto Love Primary Care Provider Melo Dominguez Unavailable [phone] Allergies Allergen (clinical drug ingredient) Drug/Non Drug Allergy documented on EMR Reaction Allergy Type Onset Date Status Penicillin Unknown Drug Allergy Active Results Component Value Reference Range Notes P-Basic Metabolic Panel (BMP ) Reviewed date:02/12/2025 04:24:54 PM Interpretation:Na 129, chlor 94 Performing Lab: Notes/Report: Test performed by [facility], [facility] [address] [place] [address] , [address], [place] [address] Jonah Drew MD, Senior Information Developer CLIA: [id number] Sodium 129 135-145 mmol/L Potassium 4.7 3.5-5.3 mmol/L Chloride 94 97-108 mmol/L CO2 28 22-32 mmol/L Glucose 92 65-99 mg/dL BUN 14 6-20 mg/dL Creatinine 1.06 0.70-1.30 mg/dL Calcium 9.4 8.6-10.4 mg/dL eGFR by Creatinine 82 >59 mL/min/1.73m2 Glycohemoglobin A1c (in hous e) Reviewed date:08/07/2024 08:53:11 AM Interpretation: Performing Lab: Notes/Report: glycohemoglobin 6.1% 5 - 6.5 % P-Comprehensive Metabolic Pa raghav (CMP) Reviewed date:08/27/2024 10:39:06 AM Interpretation:cl 95, gluc 117 Performing Lab: Notes/Report: Test performed by [facility] [address] [place] [address] , [address], [place] [address] Jonah Drew MD, Senior Information Developer CLIA: [id number] Sodium 135 135-145 mmol/L Potassium 4.5 3.5-5.3 [...] 0.5 <0.2-1.2 mg/dL A/G Ratio 1.8 1.1-2.5 X ray : Knee, right Reviewed date:09/28/2024 03:49:37 PM Interpretation:Normal Performing Lab: Notes/Report: Normal Glycohemoglobin A1c (in hous e) Reviewed date:11/27/2024 09:58:03 AM Interpretation:6.8% Performing Lab: Notes/Report: 6.8% glycohemoglobin 6.8% 5 - 6.5 % P-Microalbumin/Creatinine, R andom Urine Sample Reviewed date:06/07/2024 03:59:59 PM Interpretation:Normal Performing Lab: Notes/Report: Test performed by [facility] [address] [place] [address] , [address], [place] [address] Jonah Drew MD, Senior Information Developer CLIA: [id number] Albumin/Creatinine Ratio, Urine 10 0-30 ug/m g Microalbumin, Urine, Random 1.2 Creatinine, Urine 121.0 Reason For Referral No Information Medications Medication SIG (Take, Route, Frequency, Duration) Notes Start Date End Date Status metFORMIN HCl 500 MG TAKE 1 TABLET BY [facility] EVERY DAY for 90 Active Sildenafil Citrate 50 MG 1 tablet as needed Orally 07/14/2023 Active Doxazosin Mesylate 1 MG TAKE 1 TABLET BY MOUTH AT BEDTIME for 90 Active CareTouch CPAP & BIPAP Hose 1 DIRECTED 02/03/20 Active Celecoxib 200 MG 1 capsule with food Orally Once a day for 30 day(s) Active Metoprolol Succinate ER 100 MG TAKE 1 TABLET BY MOUTH EVERY DAY for 90 Active Atorvastatin Calcium 10 MG TAKE 1 TABLET BY MOUTH EVERY DAY FOR 90 DAYS for 90 Active Triamterene-HCTZ 37.5-25 MG TAKE 1 TABLE T BY MOUTH EVERY DAY FOR 90 DAYS for 90 Active Fenofibrate 145 MG TAKE 1 TABLET BY MARGARET TH EVERY DAY for 90 days Active amLODIPine Besylate 2.5 MG TAKE 1 TABLET BY MOUTH EVERY DAY for 90 Active Potassium Chloride ER 10 MEQ TAKE 1 TABLET BY MOUTH EVERY DAY WITH FOOD FOR 30 DAYS for 90 Active Sertraline HCl 100 MG 1 tablet Orally On ce a day for 90 days 04/25/2025 Active Valsartan 320 MG TAKE 1 TABLET BY MARGARET TH EVERY DAY for 90 Active Immunizations Vaccine Route Administration Date Status Comme nts Tetanus Tdap-Adacel (over 7yrs) Unknown 08/14/2020 Admi nistered Problems Problem Type SNOMED Code ICD Code Onset Dates Problem Status W/U Status Risk Notes Problem 90026889 Hyperglycemia (R73.9) Active confirmed Problem 03525284 Essential hypertension (I10) Active confirmed Problem Laceration of finger of right hand (55838532883047298) Laceration of finger of right hand (883.0) Active confirmed Problem 181567657 Lumbar facet arthropathy (M47.816) Active confirmed Problem 94373665 Obstructive slee p apnea (G47.33) Active confirmed Problem 095933976 Lumbago with sciatica, right side (M54.41) Active confirmed Problem 708919178 Mixed hyperlipidemia (E78.2) Active confirmed Problem 885300484 Other specific arthropathies, not elsewhere classified, right shoulder (M12.811) Active confirmed Problem 757484018 Other specific arthropathies, not elsewhere classified, left shoulder (M12.812) Active confirmed Problem 41908250404978680 Unspecified rotator cuff tear or rupture of right shoulder, not specified as traumatic (M75.101) Active confirmed Problem 93064919164845869 Unspecified rotator cuff tear or rupture of left shoulder, not specified as traumatic (M75.102) Active confirmed Problem 976428654 Myofascitis (M60.9) Active confirmed Problem Hyperlipidemia due to type 2 diabetes mellitus (disorder) (982781013954044) Hyperlipidemia associated with type 2 diabetes mellitus (E11.69) Active confirmed Problem 04857253 Degenerative dis c disease, cervical (M50.30) Active confirmed Problem Hyperlipidemia (36597267) Hyperlipidemia, unspecified (E78.5) Active confirmed Problem 34932415 Other chronic pain (G89.29) Active confirmed Problem 93362885 Sleep disturbanc e (G47.9) Active confirmed Problem 626065010 Erectile dysfunction, unspecified erectile dysfunction type (N52.9) Active confirmed Problem 682839693728477 Primary osteoarthritis of left knee (M17.12) Active confirmed Problem 808285986 Carotid stenosis , bilateral (I65.23) Active confirmed Problem 626460054 Umbilical hernia without obstruction and without gangrene (K42.9) Active confirmed Problem 494253645 Type 2 diabetes mellitus without complication, without long-term current use of insulin (E11.9) Active confirmed Problem 129026832 Benign prostatic hyperplasia without lower urinary tract symptoms (N40.0) Active confirmed Problem 968331458 Arthropathy of knee (M17.10) Active confirmed Problem 643605033 Calcification of both carotid arteries (I65.23) Active confirmed Problem 3936100548521 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) Active confirmed Problem 87167514489478893 Derangement of posterior horn of medial meniscus of left knee (M23.322) Active confirmed Problem 53811731484995418 Tear of left rotator cuff, unspecified tear extent, unspecified whether traumatic (M75.102) Active confirmed Problem 63862091 Depression, unspecified depression type (F32.A) Active confirmed Problem 019416962 Bulging lumbar disc (M51.36) Active confirmed Problem 1003395347 Persistent depressive disorder (F34.1) Active confirmed Vital Signs Heart Rate 57 /min 02/11/2025 Repeat NV=579/7 4 Blood pressure diastolic 80 mm Hg 02/11/2025 Rep eat SA=305/74 Height 72 in 02/11/2025 Repeat LD=368/7 4 Blood pressure systolic 150 mm Hg 02/11/2025 Repe at JV=027/74 Weight 298.4 lbs 02/11/2025 Repeat KL=418/7 4 BMI 40.47 kg/m2 02/11/2025 Repeat HB=735/7 4 Encounters Encounter Location Date Provider Diagnosis [facility] [address] [facility] [address] [place] [id number] 06/04/2024 J Jimmie Love Essential hypertensi on I10 and Type 2 diabetes mellitus without complication, without long-term current use of insulin E11.9 [facility] [address] [facility] [address] [place] [id number] 06/14/2024 J Jimmie Love [facility] [address] [facility] [address] [place] [id number] 08/06/2024 J Jimmie Love Essential hypertensi on I10 ; Type 2 diabetes mellitus without complication, without long-term current use of insulin E11.9 and Erectile dysfunction, unspecified erectile dysfunction type N52.9 [facility] [address] [facility] [address] [place] [id number] 08/24/2024 J Jimmie Love Essential hypertensi on I10 ; Type 2 diabetes mellitus without complication, without long-term current use of insulin E11.9 and Localized edema R60.0 [facility] [address] [facility] [address] [place] [id number] 09/26/2024 Melo [place] Acute pain of right knee M25.561 and Positive Samy test of right knee, initial encounter S83.206A [facility] [address] [facility] [address] [place] [id number] 11/26/2024 J Jimmie Love Essential hypertensi on I10 ; Type 2 diabetes mellitus without complication, without long-term current use of insulin E11.9 and Arthropathy of knee M17.10 [facility] [address] [facility] [address] [place] [id number] 01/14/2025 J Jimmie Love Essential hypertensi on I10 and History of total right knee [facility] Z96.651 [facility] [facility] [address] [place] [id number] 02/11/2025 J Jimmie Love Essential hypertensi on I10 ; Open wound T14.8XXA and Laceration of finger of right hand S61.219A [facility] [address] [place], [place] [id number] 05/28/2024 Nolberto Love Persistent depressiv e disorder F34.1 [facility] [address] [place] [id number] 08/07/2024 Nolberto Love [facility] [address] [place], [place] [id number] 08/27/2024 Nolberto Love [facility] [address] [place] [id number] 02/12/2025 Nolberto Love [facility] [address] [place] [id number] 04/25/2025 Nolberto Love [facility] [address] [place], [place] [id number] 05/17/2025 Nolberto Love Essential hypertensi on I10 ; Mixed hyperlipidemia E78.2 ; Benign prostatic hyperplasia without lower urinary tract symptoms N40.0 and Type 2 diabetes mellitus without complication, without long-term current use of insulin E11.9 Assessments Encounter Date Diagnosis (ICD Code) Assessment Notes Treatment Notes Treatment Clinical Notes Section Notes 05/28/2024 Persistent depressive disorder (ICD-10 - F34.1) [...] pain of right knee (ICD-10 - M25.561) Rest, ice, compression and elevation 09/26/2024 Positive Samy test of right knee, initial encounter (ICD-10 - S83.206A) 11/26/2024 Essential hypertension (ICD-10 - I10) 11/26/2024 Type 2 diabetes mellitus without complication, without long-term current use of insulin (ICD-10 - E11.9) 01/14/2025 Essential hypertension (ICD-10 - I10) 01/14/2025 History of total right knee replacement (ICD-10 - Z96.651) 02/11/2025 Essential hypertension (ICD-10 - I10) 02/11/2025 Open wound (ICD-10 - T14.8XXA) 05/17/2025 Essential hypertension (ICD-10 - I10) 05/17/2025 Mixed hyperlipidemia (ICD-10 - E78.2) 08/06/2024 Type 2 diabetes mellitus without complication, without long-term current use of insulin (ICD-10 - E11.9) 08/24/2024 Essential hypertension (ICD-10 - I10) 08/24/2024 Localized edema (ICD-10 - R60.0) 05/17/2025 Benign prostatic hyperplasia without lower urinary tract symptoms (ICD-10 - N40.0) 02/11/2025 Laceration of finger of right hand (ICD-10 - S61.219A) No treatment of the finger tip required. Expected to heal in adequately. Wound cleaned, dressing applied. 11/26/2024 Arthropathy of knee (ICD-10 - M17.10) 08/06/2024 Erectile dysfunction, unspecified erectile dysfunction type (ICD-10 - N52.9) 05/17/2025 Type 2 diabetes mellitus without complication, without long-term current use of insulin (ICD-10 - E11.9) Plan Of Treatment Pending Test Test Name Order Date H-CBC 05/17/2025 H-Microalbumine/Creatinine 05/17/2025 H-Lipid Panel 05/17/2025 H-CMP 05/17/2025 H-Glycohemoglobin A1C 05/17/2025 H-PSA 05/17/2025 Next Appt Details Provider Name:Nolberto Aguayo er, 05/23/2025 03:45:00 PM, [address], [address], [place], [id number], Insurance Providers Payer Name Payer Address Payer Phone Subscriber Number Group Number Insured Name Patient Relationship to Insured Coverage Start Date Coverage End Date [employer] [address] [place] [address] [id number] JEFF JAUREGUI Self - patient is the insured Medications Administered Medication Instructions Date of Administration Dosage Notes Dexamethasone 04/20/2016 1 mL Medical (General) History Medical History History ICD Code Hyperlipidemia Hypertension Seasonal Allergies Cervical Disc Disease Cervical spine osteoarthritis, MRI 2019 Left rotator cuff tear, MRI 2022 Surgical History Surgery Date(Month/Year) Umbilical Hernia Repair 07/16/2020 LT Knee Arthroscopy, [facility] Hospitalization History Reason Date(Month/Year) RT Leg Laceration 08/14/2016
[2025-05-18 11:12] LABS: Adenovirus F 40/41, stool Not Detected (NotDetected); Astrovirus Not Detected (NotDetected); Campylobacter Not Detected (NotDetected); Clostridium Difficile A/B, PCR Not Detected (NotDetected); Cryptosporidium Not Detected (NotDetected); Cyclospora Cayetanesis Not Detected (NotDetected); Entamoeba histolytica Not Detected (NotDetected); Enteroaggregative E coli Not Detected (NotDetected); Enteropathogenic E coli Not Detected (NotDetected); Enterotoxigenic E coli Not Detected (NotDetected); Giardia lamblia Not Detected (NotDetected); Plesimonas Shigalloides, PCR Not Detected (NotDetected); Rotavirus A Not Detected (NotDetected); Salmonella, PCR Not Detected (NotDetected); Sapovirus Not Detected (NotDetected); Shiga-like toxin E coli Not Detected (NotDetected); Shigella Enterovasive E coli Not Detected (NotDetected); Vibrio Cholerae Not Detected (NotDetected); Vibrio, PCR Not Detected (NotDetected); Yersinia Entercolitica, PCR Not Detected (NotDetected)
[2025-05-18 14:48] LABS: Norovirus Detected (NotDetected)
== END 2025-05-18 23:59 | disposition home or self-care (01) ==
LOC: LAB 11:06
PROVIDERS: PCP Family Medicine; Visit Provider Student in an Organized Health Care Education/Training Program
DX: R19.7 Diarrhea, unspecified (principal)
CPT/HCPCS: 87507